=== PATIENT | female | born 1975 | race African-American/Black ===

== ENCOUNTER 2018-04-17 05:27 | Observation (INO) ==
[2018-04-17] MEDS ORDERED: methylPREDNISolone 125 MG/2 ML VIAL IVP ONE (05:36)
--- NOTE | 2018-04-17 05:59 | Emergency Department Note ---
Disposition Clinical Impression: Angioedema Disposition: Admitted As Inpatient Condition: Fair Referrals: Erin aMrie, JOSE CRUZ [Primary Care Provider] - Forms: ED Satisfaction Letter Time of Disposition: 06:20 Allergic Reaction HPI - General Chief complaint: ED Allergic Reaction Stated complaint: allergic reaction Time Seen by Provider: 04/17/18 05:32 Source: patient Mode of arrival: ambulatory Limitations: no limitations Nursing Notes Reviewed: Yes Vital Signs Reviewed: Yes - History of Present Illness HPI Narrative: Patient presents to the ED with the chief complaint of face and lip swelling. Patient just started taking lisinopril yesterday for hypertension. Took her first dose yesterday morning. States around 845 last night she started noticing some swelling in her lower lip. It has since progressed to bilateral lower lobes and upper lip as well as her cheek mainly on the right. She denies any tongue swelling at this time. She has no dyspnea or trouble swallowing. She states that she has taken Benadryl 3 times without any progression in symptoms. - Related Data Home Medications Medication Instructions Recorded Confirmed Pregabalin [Lyrica] 150 mg PO BID 07/02/17 04/17/18 Propranolol HCl 40 mg PO BID 07/02/17 04/17/18 Fexofenadine HCl [Allergy Relief] 180 mg PO DAILY 09/04/17 04/17/18 Aspirin [Adult Aspirin] 81 mg PO DAILY 04/17/18 04/17/18 Calcium Carbonate [Calcium] 500 mg PO DAILY 04/17/18 04/17/18 Cyclobenzaprine [Flexeril] 10 mg PO BID 04/17/18 04/17/18 DULoxetine [Cymbalta] 20 mg PO BID 04/17/18 04/17/18 Ferrous Sulfate [Iron] 325 mg PO DAILY 04/17/18 04/17/18 Hydrocodone/Acetaminophen 0.5 - 1 tab PO DAILY PRN 04/17/18 04/17/18 [Hydrocodone-Acetamin 5-300 mg] Melatonin 5 mg PO DAILY 04/17/18 04/17/18 Montelukast [Singulair] 10 mg PO DAILY 04/17/18 04/17/18 Multivitamin [One Daily Essential] 1 tab PO DAILY 04/17/18 04/17/18 Nasocobal 04/17/18 Allergies Allergy/AdvReac Type Severity Reaction Status Date / Time lisinopril Allergy See Verified 04/17/18 06:39 Comments NSAIDS (Non-Steroidal Allergy See Verified 04/17/18 06:39 Anti-Inflamma Comments oral steriods Allergy See Uncoded 04/17/18 06:39 Comments Review of Systems: As reviewed in the HPI. All other systems reviewed are negative or normal. Past Medical History - Past Medical History Attestation: Yes The following information was validated with the patient. Source: patient Medical history: Reports: arthritis, CVA, hypertension, migraine Surgical history: Reports: cholecystectomy Psychiatric history: Reports: anxiety, depression BEAN SNAPPER history: Reports: no BEAN SNAPPER history - Social History Smoking Status: Never smoker Smokeless Tobacco Status: No Alcohol use: Reports: rarely Drug use: Reports: none Physical Exam - General Limitations: no limitations General appearance: alert, in no apparent distress - Head Head exam: atraumatic, normocephalic, normal inspection - Eye Eye exam: Present: normal appearance, PERRL, EOMI - ENT ENT exam: other (There is diffuse perioral edema with right greater than left, no tongue or palate or uvula involvement.) - Neck Neck exam: Present: other (. Phonation is normal, no stridor) - Chest Chest inspection: Present: normal inspection, symmetric chest wall rise - Respiratory Respiratory exam: Present: normal lung sounds bilaterally - Cardiovascular Cardiovascular exam: Present: regular rate, normal rhythm, normal heart sounds Course Course Narrative: Patient presenting with lisinopril-induced angioedema. She does not have involvement of her tongue or palate yet, but is progressing since 845 last night. She has had Benadryl previously, which has not helped. We will re-dose Benadryl and defers Solu-Medrol. We will also give her 2 units of FFP to help blunt the bradykinin response. Patient will be either observed in the emergency department for 4-6 hours for will be admitted for further management. Close attention will be placed to her airway status, but she is currently stable. Vital Signs Temperature 98.1 F 04/17/18 05:29 Pulse Rate 76 04/17/18 05:29 Respiratory Rate 16 04/17/18 05:29 Blood Pressure 133/91 04/17/18 05:29 O2 Sat by Pulse Oximetry 99 04/17/18 05:29 Temperature 98.1 F 04/17/18 05:29 Pulse Rate 73 05/31/18 06:25 Respiratory Rate 16 04/17/18 06:25 Blood Pressure 131/90 04/17/18 06:25 O2 Sat by Pulse Oximetry 98 04/17/18 06:25 Oxygen Delivery Oxygen Delivery Room Air Allergic Reaction - Lab Data Result diagrams: 04/17/18 05:57 04/17/18 05:57 Lab Results 04/17/18 04/17/18 Range/Units 05:57 05:57 WBC 7.8 (4.3-11.1) K/mcL RBC 4.66 (3.82-4.97) M/mcL Hgb 13.5 (11.5-15.4) g/dL Hct 42.4 (35.3-44.9) % MCV 91.0 (83.0-100.0) fL MCH 29.0 (28.0-33.3) pg MCHC 31.8 (31.6-35.5) g/dL RDW 15.6 H (11.5-14.5) % Plt Count 321 (140-400) K/mcL MPV 10.5 (9.4-12.4) fL Immature Gran % 0.6 (0-4) % Seg Neutrophils % 47.1 % Lymphocytes % 45.2 % Monocytes % 5.0 % Eosinophils % 1.5 % Basophils % 0.6 % Neutrophils # 3.7 (1.6-8.9) K/mcL Lymphocytes # 3.5 (0.6-4.6) K/mcL Monocytes # 0.4 (0.0-1.3) K/mcL Eosinophils # 0.1 (0.0-0.6) K/mcL Basophils # 0.1 (0.0-0.2) K/mcL Sodium 137 (136-145) mEq/L Potassium 4.1 (3.5-5.1) mEq/L Chloride 105 (98-107) mEq/L Carbon Dioxide 22 L (23-29) mEq/L BUN 17 (6-20) mg/dL Creatinine 0.64 (0.60-1.20) mg/dL Est GFR ( Amer) > 60 (> 60) Est GFR (Non-Af Amer) > 60 (> 60) BUN/Creatinine Ratio 27 H (6-26) Glucose 95 (70-105) mg/dL Calculated Osmolality 285 (280-300) Calcium 9.4 (8.6-10.3) mg/dL Attestation Statement - Attestation Attestation: I examined this patient and my medical decision-making was reviewed with the Resident Physician. I agree with the documented findings, disposition and treatment plan as described except to the extent set forth below.
[2018-04-17 06:37] LABS: Basophils # 0.1 K/mcL (0.0-0.2); Basophils % 0.6 %; Eosinophils # 0.1 K/mcL (0.0-0.6); Eosinophils % 1.5 %; Hematocrit 42.4 % (35.3-44.9); Hemoglobin 13.5 g/dL (11.5-15.4); Immature Granulocytes % 0.6 % (0-4); Lymphocytes # 3.5 K/mcL (0.6-4.6); Lymphocytes % 45.2 %; Mean Corpuscular HGB Conc 31.8 g/dL (31.6-35.5); Mean Platelet Volume 10.5 fL (9.4-12.4); Monocytes # 0.4 K/mcL (0.0-1.3); Neutrophils # 3.7 K/mcL (1.6-8.9); Platelet Count 321 K/mcL (140-400); Red Blood Count 4.66 M/mcL (3.82-4.97); Red Cell Distribution Width 15.6 % (11.5-14.5); Segmented Neutrophils % 47.1 %
[2018-04-17 06:50] LABS: BUN/Creatinine Ratio 27 (6-26); Blood Urea Nitrogen 17 mg/dL (6-20); Calcium 9.4 mg/dL (8.6-10.3); Carbon Dioxide 22 mEq/L (23-29); Chloride 105 mEq/L (98-107); Glucose 95 mg/dL (70-105); Osmolality,Calculated 285 (280-300); Potassium 4.1 mEq/L (3.5-5.1); Sodium 137 mEq/L (136-145); eGFR For African Americans > 60 (> 60); eGFR For Non-African Americans > 60 (> 60)
--- NOTE | 2018-04-17 06:59 | Emergency Department Note ---
Disposition Clinical Impression: Angioedema Disposition: Admitted As Inpatient Condition: Fair Referrals: Erin Marie, MARKETING SUPPORT MANAGER [Primary Care Provider] - Forms: ED Satisfaction Letter General Adult HPI - General Chief complaint: ED Allergic Reaction Stated complaint: allergic reaction Time Seen by Provider: 04/17/18 05:32 Source: patient Mode of arrival: ambulatory Limitations: no limitations - History of Present Illness Pain Scale: 0 - Related Data Home Medications Medication Instructions Recorded Confirmed Pregabalin [Lyrica] 150 mg PO BID 07/02/17 04/17/18 Propranolol HCl 40 mg PO BID 07/02/17 04/17/18 Fexofenadine HCl [Allergy Relief] 180 mg PO DAILY 09/04/17 04/17/18 Aspirin [Adult Aspirin] 81 mg PO DAILY 04/17/18 04/17/18 Calcium Carbonate [Calcium] 500 mg PO DAILY 04/17/18 04/17/18 Cyclobenzaprine [Flexeril] 10 mg PO BID 04/17/18 04/17/18 DULoxetine [Cymbalta] 20 mg PO BID 04/17/18 04/17/18 Ferrous Sulfate [Iron] 325 mg PO DAILY 04/17/18 04/17/18 Hydrocodone/Acetaminophen 0.5 - 1 tab PO DAILY PRN 04/17/18 04/17/18 [Hydrocodone-Acetamin 5-300 mg] Melatonin 5 mg PO DAILY 04/17/18 04/17/18 Montelukast [Singulair] 10 mg PO DAILY 04/17/18 04/17/18 Multivitamin [One Daily Essential] 1 tab PO DAILY 04/17/18 04/17/18 Nasocobal 04/17/18 Allergies Allergy/AdvReac Type Severity Reaction Status Date / Time lisinopril Allergy See Verified 04/17/18 06:39 Comments NSAIDS (Non-Steroidal Allergy See Verified 04/17/18 06:39 Anti-Inflamma Comments oral steriods Allergy See Uncoded 04/17/18 06:39 Comments Past Medical History - Past Medical History Medical history: Reports: arthritis, CVA, hypertension, migraine Surgical history: Reports: cholecystectomy Psychiatric history: Reports: anxiety, depression FOREST PATROLMAN history: Reports: no FOREST PATROLMAN history - Social History Smoking Status: Never smoker Smokeless Tobacco Status: No Alcohol use: Reports: rarely Drug use: Reports: none Physical Exam - General Limitations: no limitations General appearance: alert, in no apparent distress Course Vital Signs Temperature 98.1 F 04/17/18 05:29 Pulse Rate 76 04/17/18 05:29 Respiratory Rate 16 04/17/18 05:29 Blood Pressure 133/91 04/17/18 05:29 O2 Sat by Pulse Oximetry 99 04/17/18 05:29 Temperature 98.1 F 04/17/18 05:29 Pulse Rate 73 04/17/18 06:25 Respiratory Rate 16 04/17/18 06:25 Blood Pressure 131/90 04/17/18 06:25 O2 Sat by Pulse Oximetry 98 04/17/18 06:25 Oxygen Delivery Oxygen Delivery Room Air Medical Decision Making - Lab Data Result diagrams: 04/17/18 05:57 04/17/18 05:57 Lab Results 04/17/18 04/17/18 Range/Units 05:57 05:57 WBC 7.8 (4.3-11.1) K/mcL RBC 4.66 (3.82-4.97) M/mcL Hgb 13.5 (11.5-15.4) g/dL Hct 42.4 (35.3-44.9) % MCV 91.0 (83.0-100.0) fL MCH 29.0 (28.0-33.3) pg MCHC 31.8 (31.6-35.5) g/dL RDW 15.6 H (11.5-14.5) % Plt Count 321 (140-400) K/mcL MPV 10.5 (9.4-12.4) fL Immature Gran % 0.6 (0-4) % Seg Neutrophils % 47.1 % Lymphocytes % 45.2 % Monocytes % 5.0 % Eosinophils % 1.5 % Basophils % 0.6 % Neutrophils # 3.7 (1.6-8.9) K/mcL Lymphocytes # 3.5 (0.6-4.6) K/mcL Monocytes # 0.4 (0.0-1.3) K/mcL Eosinophils # 0.1 (0.0-0.6) K/mcL Basophils # 0.1 (0.0-0.2) K/mcL Sodium 137 (136-145) mEq/L Potassium 4.1 (3.5-5.1) mEq/L Chloride 105 (98-107) mEq/L Carbon Dioxide 22 L (23-29) mEq/L BUN 17 (6-20) mg/dL Creatinine 0.64 (0.60-1.20) mg/dL Est GFR ( Amer) > 60 (> 60) Est GFR (Non-Af Amer) > 60 (> 60) BUN/Creatinine Ratio 27 H (6-26) Glucose 95 (70-105) mg/dL Calculated Osmolality 285 (280-300) Calcium 9.4 (8.6-10.3) mg/dL Attestation Statement - Attestation Attestation: I examined this patient and my medical decision-making was reviewed with the Resident Physician. I agree with the documented findings, disposition and treatment plan as described except to the extent set forth below. 42-year-old female presents ED because of facial swelling. She started lisinopril yesterday and through the night started developing facial swelling. This involves her upper and lower lips. Denies any difficult breathing or difficulty swallowing. No voice changes. No fever. No headache. Pleasant, well-appearing female in no apparent distress. Moderate symmetric facial swelling. Oropharynx is clear. No uvular edema. No tongue edema. No stridor. Lungs are clear to auscultation bilaterally. Presentation was consistent with BRIANNE inhibitor-induced angioedema She will be given 2 units of fresh frozen plasma and will be admitted for observation.
[2018-04-17] MEDS ORDERED: *HR* HYDROcodone/Acet 5/325 mg TABLET PO PRN (08:12)
[2018-04-17] MEDS ORDERED: *HR* Promethazine 25 MG/ML VIAL IVP PRN (08:12)
[2018-04-17] MEDS ORDERED: Naloxone 0.4 MG/ML INJ IVP PRN (08:12)
[2018-04-17] MEDS ORDERED: Ondansetron 4 MG/2 ML VIAL IVP PRN (08:12)
[2018-04-17] MEDS ORDERED: Acetaminophen 325 MG TABLET PO PRN (08:12)
--- NOTE | 2018-04-17 08:14 | Emergency Department Note ---
START Narrative - START START: Patient was in sign out from previous team, Dr. Monroy, Dr. Altamirano. In summary, patient is a 42-year-old female with past history of hypertension, surgery on lisinopril yesterday. She had upper and lower lip swelling. No additional doses this morning. She declined Benadryl home. She was given Benadryl, Solu- Medrol, 2 units of FFP here in the ER. She noted tongue or posterior oropharynx involvement, no wheezing, no shortness of breath or difficulty with swallowing. Patient was awaiting hospitalist return phone call at sign out. Patient has been accepted for admission by Dr. Ch at 08:14. The patient remained stable this time, no additional tongue or throat involvement on our exam.
[2018-04-17] MEDS ORDERED: Melatonin 3 MG TABLET PO SCH (09:00)
--- NOTE | 2018-04-17 09:23 | Internal Med History&Physical ---
Date of Encounter: 04/17/18 Time of Encounter: 08:15 Internal Medicine - H&P: HPI Chief complaint: Lip swelling Admitted From: Emergency Dept Plans for Post Hospital Care: Home History of present illness: Ms. Gardner is a 42 year old female with a known past medical history of migraine headaches, neuropathy, fibromyalgia, seasonal allergies and recently diagnosed hypertension and patient was started on lisinopril y/d by PCP. Now she presented to ER c/o worsening upper lip swelling since last night after she took her first dose of Lisinopril. She denied any CP / SOB. She denied of a difficult to swallowing. Past Med Surg Social Fam HX - Past Medical History Medical history: arthritis, CVA, hypertension, migraine Additional medical history: IBS. history of HTN, Hyperlipidemia, DM, GERD- patient states all resolved after gastric bypass Psychiatric history: anxiety, depression - Past Surgical History Surgical History: cholecystectomy Additional surgical history: GASTRIC BYPASS. BOWEL RESECTION. Left shoulder. Left ankle. Left breast bx. Left knee knee. sinus x2 - Social History Smoking Status: Never smoker Smokeless Tobacco Status: No Alcohol use: rarely Drug use: none - Additional Family History Additional family history: Family hsitory reviewed and non contribuitory to current problem. Internal Medicine - H&P: Meds Pregabalin [Lyrica] 150 mg PO BID 07/02/17 [History] Propranolol HCl 40 mg PO BID 07/02/17 [History] Fexofenadine HCl [Allergy Relief] 180 mg PO DAILY 09/04/17 [History] Aspirin [Adult Aspirin] 81 mg PO DAILY 04/17/18 [History] Calcium Carbonate [Calcium] 500 mg PO DAILY 04/17/18 [History] Cyclobenzaprine [Flexeril] 10 mg PO BID 04/17/18 [History] DULoxetine [Cymbalta] 20 mg PO BID 04/17/18 [History] Ferrous Sulfate [Iron] 325 mg PO DAILY 04/17/18 [History] Hydrocodone/Acetaminophen [Hydrocodone-Acetamin 5-300 mg] 0.5 - 1 tab PO DAILY PRN 04/17/18 [History] Melatonin 5 mg PO DAILY 04/17/18 [History] Montelukast [Singulair] 10 mg PO DAILY 04/17/18 [History] Multivitamin [One Daily Essential] 1 tab PO DAILY 04/17/18 [History] Nasocobal 04/17/18 [History] 3 Allergy/AdvReac Type Severity Reaction Status Date / Time lisinopril Allergy See Verified 04/17/18 06:39 Comments NSAIDS (Non-Steroidal Allergy See Verified 04/17/18 06:39 Anti-Inflamma Comments oral steriods Allergy See Uncoded 04/17/18 06:39 Comments All Systems PM: A 10-system review of systems was performed and is negative for pertinent findings except as documented above in the HPI. Review of systems: All the systems are reviewed everything is benign except the systems and symptoms I mentioned in the history of present illness - Constitutional Vitals: Temp Pulse Resp BP Pulse Ox 98.3 F 80 17 130/82 95 04/17/18 09:02 04/17/18 09:02 04/17/18 09:02 04/17/18 09:02 04/17/18 09:02 General appearance: Present: cooperative, A&O X 3, no acute distress, answers questions appropriately - Head Head exam: Present: atraumatic - ENT ENT exam: Present: mucous membranes moist Additional comments: Swollen upper lip. No pharyngeal erythema and edema noticed - Expanded ENT Exam Mouth exam: Present: tongue normal. Absent: muffled voice - Neck Neck exam general surgery: Present: supple - Respiratory Respiratory exam: Present: CTAB. Absent: accessory muscle use, rales, rhonchi, wheezes - Cardiovascular Cardiovascular exam: Present: RRR, +S1, +S2. Absent: diastolic murmur, gallop, rubs, systolic murmur - GI/Abdominal GI/Abdominal exam: Present: normal bowel sounds, soft, no peritoneal signs. Absent: distended, tenderness - Extremities Exam Extremities exam: Absent: calf tenderness, pedal edema, tenderness - Back Exam Back exam: Absent: CVA tenderness (L), CVA tenderness (R) - Neurological Exam Neurological exam: Present: alert, oriented X3 - Psychiatric Psychiatric exam: Present: normal affect, normal mood - Skin Skin exam: Absent: rash Internal Med - H&P Results - Labs CBC & Chem 7: 04/17/18 05:57 04/17/18 05:57 - Assessment and plan (1) Angioedema Current Visit: Yes Status: Acute Assessment and plan: Place the patient on Tele for observation patient does have mild angioedema due to ACEI use d/c Lisinopril and documented as allergy IV hydration IV solumedrol 40 Q6hr Pepcid 20 IV BID Benadryl PRN no signs of airway obstruction Qualifiers: Encounter type: initial encounter Qualified Code(s): T78.3XXA - Angioneurotic edema, initial encounter (2) HTN (hypertension) Current Visit: Yes Status: Acute Assessment and plan: d/c Lisinopril so far stable blood pressure in 120's Will start her on Norvasc 5mg Daily if BP gets uncontrolled Qualifiers: Hypertension type: essential hypertension Qualified Code(s): I10 - Essential (primary) hypertension (3) Migraine Current Visit: Yes Status: Chronic Assessment and plan: Resumed home medication Qualifiers: Migraine type: without aura Intractability: not intractable Qualified Code(s): G43.009 - Migraine without aura, not intractable, without status migrainosus (4) Fibromyalgia Current Visit: Yes Status: Acute Assessment and plan: Resumed home medication - Time Spent With Patient Total time spent is greater than 50% in coordination of care (as documented) at patient's floor/unit and/or counseling patient:
[2018-04-17] MEDS ORDERED: 0.9 % Sodium Chloride 250 ML ONE (11:38)
[2018-04-17] MEDS: Multivit/Ca/Min/Fe/FA 1 TAB TABLET PO SCH (11:51)
[2018-04-17] MEDS: Aspirin Enteric Coated 81 MG Tablet PO SCH (11:51)
[2018-04-17] MEDS: Pregabalin 75 MG CAPSULE PO SCH ×2 (11:51→22:06)
[2018-04-17] MEDS: Famotidine 20 MG/2 ML VIAL IVP SCH ×2 (11:54→18:17)
[2018-04-17] MEDS: MethylPREDNISolone 40 MG/ML VIAL IVP SCH (18:17)
[2018-04-17] MEDS: Melatonin 3 MG TABLET PO SCH (22:06)
[2018-04-18] MEDS: MethylPREDNISolone 40 MG/ML VIAL IVP SCH ×4 (00:32→23:44)
[2018-04-18] MEDS: Famotidine 20 MG/2 ML VIAL IVP SCH ×2 (06:29→17:01)
[2018-04-18 06:49] LABS: Chol/HDL Ratio 2.3 (0-4.9)
[2018-04-18] MEDS: Aspirin Enteric Coated 81 MG Tablet PO SCH (07:47)
[2018-04-18] MEDS: Multivit/Ca/Min/Fe/FA 1 TAB TABLET PO SCH (07:48)
[2018-04-18] MEDS: Pregabalin 75 MG CAPSULE PO SCH ×2 (07:48→21:33)
[2018-04-18] MEDS: amLODIPine 5 MG TABLET PO SCH (08:37)
--- NOTE | 2018-04-18 11:53 | Discharge Summary ---
- NOTES TO OUTPATIENT PROVIDER Notes to Outpatient Provider: Recommend follow-up with BP within one week Date of Encounter: 04/18/18 Time of Encounter: 12:37 - Discharge Diagnosis (1) Angioedema Status: Acute Assessment and Plan: Place the patient on Tele for observation patient does have mild angioedema due to ACEI use d/c Lisinopril and documented as allergy IV hydration IV solumedrol 40 Q6hr Pepcid 20 IV BID Benadryl PRN no signs of airway obstruction Qualifiers: Encounter type: initial encounter Qualified Code(s): T78.3XXA - Angioneurotic edema, initial encounter (2) HTN (hypertension) Status: Acute Assessment and Plan: d/c Lisinopril so far stable blood pressure in 120's Will start her on Norvasc 5mg Daily if BP gets uncontrolled Qualifiers: Hypertension type: essential hypertension Qualified Code(s): I10 - Essential (primary) hypertension (3) Migraine Status: Chronic Assessment and Plan: Resumed home medication Qualifiers: Migraine type: without aura Intractability: not intractable (4) Fibromyalgia Status: Acute Assessment and Plan: Resumed home medication Hospital course: Please see assessment and plan for Hospital course Discharge discussed with: patient (Seen and examined at bedside. Patient is new to me, information obtained from chart review and patient report. Says she feels significantly better. No shortness of breath, dysphagia. ) - Time Spent with Patient Total time spent providing and/or coordinating discharge services: - Discharge Medications Prescriptions: amLODIPine [Norvasc] 10 mg PO DAILY #60 tablet Home Medications: Pregabalin [Lyrica] 150 mg PO BID 07/02/17 [History] Propranolol HCl 40 mg PO BID 07/02/17 [History] Fexofenadine HCl [Allergy Relief] 180 mg PO DAILY 09/04/17 [History] Aspirin [Adult Aspirin] 81 mg PO DAILY 04/17/18 [History] Calcium Carbonate [Calcium] 500 mg PO DAILY 04/17/18 [History] Cyclobenzaprine [Flexeril] 10 mg PO BID 04/17/18 [History] DULoxetine [Cymbalta] 20 mg PO BID 04/17/18 [History] Ferrous Sulfate [Iron] 325 mg PO DAILY 04/17/18 [History] Hydrocodone/Acetaminophen [Hydrocodone-Acetamin 5-300 mg] 0.5 - 1 tab PO DAILY PRN 04/17/18 [History] Melatonin 5 mg PO DAILY 04/17/18 [History] Montelukast [Singulair] 10 mg PO DAILY 04/17/18 [History] Multivitamin [One Daily Essential] 1 tab PO DAILY 04/17/18 [History] Nasocobal 04/17/18 [History] amLODIPine [Norvasc] 10 mg PO DAILY #60 tablet 04/18/18 [Rx] Allergies/Adverse Reactions: 3 Allergy/AdvReac Type Severity Reaction Status Date / Time lisinopril Allergy See Verified 04/17/18 06:39 Comments NSAIDS (Non-Steroidal Allergy See Verified 04/17/18 06:39 Anti-Inflamma Comments oral steriods Allergy See Uncoded 04/17/18 06:39 Comments Date of admission: 04/17/18 08:15 Primary care physician: Erin Marie CNP Discharging clinician: Shell Hansen Anticipated date of discharge: 04/18/18 - Constitutional Vitals: Temp Pulse Resp BP Pulse Ox 98.2 F 80 18 115/77 96 04/18/18 10:25 04/18/18 10:25 04/18/18 10:25 04/18/18 10:25 04/18/18 10:25 General appearance: Present: cooperative, A&O X 3, no acute distress, answers questions appropriately - Patient Status Condition: Fair - Discharge Instructions Follow Up With: Erin Marie CNP [Primary Care Provider] - (Please call your primary care provider and schedule an appointment within 7-10 days. Thank You. )
--- NOTE | 2018-04-18 16:29 | Internal Med Progress Note ---
Date of Encounter: 04/18/18 Time of Encounter: 16:24 - Assessment and plan (1) Angioedema Current Visit: Yes Status: Acute Assessment and plan: secondary to BRIANNE. Took first dose of lisinopril day prior to admission with subsequent upper and lower lip and airway edema. Symptoms resolved with stopping BRIANNE and steroids. Continue steroids for now. No signs or symptoms airway compromise. He quickly oxygenating on room air. Qualifiers: Encounter type: initial encounter Qualified Code(s): T78.3XXA - Angioneurotic edema, initial encounter (2) HTN (hypertension) Current Visit: Yes Status: Acute Assessment and plan: per hx. BP uncontrolled. Amlodipine added. Monitor BP and titrate PRN Qualifiers: Hypertension type: essential hypertension Qualified Code(s): I10 - Essential (primary) hypertension (3) Migraine Current Visit: Yes Status: Chronic Assessment and plan: Resumed home medication Qualifiers: Migraine type: without aura Intractability: not intractable Qualified Code(s): G43.001 - Migraine without aura, not intractable, with status migrainosus (4) Fibromyalgia Current Visit: Yes Status: Acute Assessment and plan: Resumed home medication (5) Chest pain Current Visit: Yes Status: Acute Assessment and plan: reported chest pain on 04/18 exam that radiated to her throat/neck. Different from presenting symptoms. No known CAD. Neck EKG, serial troponins. States she had an echocardiogram at [facility] last week, records requested. Cont to monitor on telemetry. Qualifiers: Chest pain type: unspecified Qualified Code(s): R07.9 - Chest pain, unspecified (6) DVT prophylaxis Current Visit: Yes Status: Acute Assessment and plan: ambulation - Time Spent With Patient Total time spent is greater than 50% in coordination of care (as documented) at patient's floor/unit and/or counseling patient: - Subjective Interval history: Seen and examined at bedside. Patient is new to me, information obtained from chart review and patient report. Patient says she feels significantly better regarding swelling and difficult breathing. She does report episode of chest pressure that radiated to her neck earlier this morning when she was drinking coffee. Denies all my exam. No shortness of breath. She is agreeable to stay to cycle troponins and get echocardiogram [facility]. - Constitutional Vitals: Temp Pulse Resp BP Pulse Ox 98.4 F 86 18 117/72 97 04/18/18 15:29 04/18/18 15:29 04/18/18 15:29 04/18/18 15:29 04/18/18 15:29 General appearance: Present: cooperative, A&O X 3, no acute distress, answers questions appropriately - Head Head exam: Present: atraumatic, normocephalic - Eye Eye exam: Present: PERRL, conjuntiva pink, sclera anicteric Pupils: Present: PERRL - Neck Neck exam general surgery: Present: supple, trachea midline. Absent: lymphadenopathy - Respiratory Respiratory exam: Present: CTAB. Absent: accessory muscle use, rales, rhonchi, wheezes - Cardiovascular Cardiovascular exam: Present: RRR, +S1, +S2. Absent: diastolic murmur, gallop, rubs, systolic murmur - GI/Abdominal GI/Abdominal exam: Present: normal bowel sounds, soft, no peritoneal signs. Absent: distended, tenderness - Extremities Exam Extremities exam: Present: warm, radial pulses palpable and symmetrical. Absent : calf tenderness, cyanotic, pedal edema - Neurological Exam Neurological exam: Present: CN II-XII intact, oriented X3, no focal deficits. Absent: pronater drift, facial droop, speech deficit - Skin Skin exam: Present: dry, intact Internal Medicine: Result - Labs CBC & Chem 7: 04/17/18 05:57 04/17/18 05:57 Labs: Cardiac Enzymes 04/18/18 Range/Units 14:16 Troponin I < 0.03 (< 0.04) ng/mL Consult Discharge Plan - Plan Referrals: Erin Marie, CODING COMPLIANCE MANAGER [Primary Care Provider] - (Please call your primary care provider and schedule an appointment within 7-10 days. Thank You. ) Prescriptions: amLODIPine [Norvasc] 10 mg PO DAILY #60 tablet
[2018-04-18] MEDS: Melatonin 3 MG TABLET PO SCH (21:33)
[2018-04-19] MEDS: Famotidine 20 MG/2 ML VIAL IVP SCH ×2 (06:33→17:14)
[2018-04-19] MEDS: amLODIPine 5 MG TABLET PO SCH (08:12)
[2018-04-19] MEDS: MethylPREDNISolone 40 MG/ML VIAL IVP SCH ×2 (08:12→19:22)
[2018-04-19] MEDS: Pregabalin 75 MG CAPSULE PO SCH ×2 (08:13→21:27)
[2018-04-19] MEDS: Multivit/Ca/Min/Fe/FA 1 TAB TABLET PO SCH (08:13)
[2018-04-19] MEDS: Aspirin Enteric Coated 81 MG Tablet PO SCH (08:13)
--- NOTE | 2018-04-19 16:08 | Internal Med Progress Note ---
Date of Encounter: 04/19/18 Time of Encounter: 16:08 - Assessment and plan (1) Chest pain Current Visit: Yes Status: Acute Assessment and plan: reported chest pain on 04/18 exam that radiated to her throat/neck. Different from presenting symptoms. No known CAD. EKG without acute ST changes. Serial troponins negative. 04/09/18 [facility] TTE with EF 65%, no significant valvular disease. Reports persistent chest tightness on 04/19 exam. Cardiac risk factors include hypertension and family history. Plan for stress on Thursday 04/19. Of note patient will be a 2 day stress therefore will not be completed until Friday 04/20. Continue to monitor on telemetry. Qualifiers: Chest pain type: unspecified Qualified Code(s): R07.9 - Chest pain, unspecified (2) Angioedema Current Visit: Yes Status: Acute Assessment and plan: secondary to BRIANNE. Took first dose of lisinopril day prior to admission with subsequent upper and lower lip and airway edema. Symptoms resolved with stopping BRIANNE and steroids. Continue steroids for now. No signs or symptoms airway compromise. Adequately oxygenating on room air. Cont steroids (stop after dose on Saturday 04/21). Qualifiers: Encounter type: initial encounter Qualified Code(s): T78.3XXA - Angioneurotic edema, initial encounter (3) HTN (hypertension) Current Visit: Yes Status: Acute Assessment and plan: per hx. BP uncontrolled. Amlodipine added. Monitor BP and titrate PRN. Nik elevation of BP on 04/19. PRN hydralazine added Qualifiers: Hypertension type: essential hypertension Qualified Code(s): I10 - Essential (primary) hypertension (4) Migraine Current Visit: Yes Status: Chronic Assessment and plan: Resumed home medication Qualifiers: Migraine type: without aura Intractability: not intractable Qualified Code(s): G43.001 - Migraine without aura, not intractable, with status migrainosus (5) Fibromyalgia Current Visit: Yes Status: Acute Assessment and plan: Resumed home medication (6) DVT prophylaxis Current Visit: Yes Status: Acute - Time Spent With Patient Total time spent is greater than 50% in coordination of care (as documented) at patient's floor/unit and/or counseling patient: - Subjective Interval history: Seen and examined at bedside. Overall says she feels better. Swelling of the lips is completely gone. No dysfunction shortness of breath. She does report persistent chest tightness that radiates to left shoulder. She is concerned due to family history of CAD. She is agreeable to stay for stress test on Saturday. She is aware that she is a 2 day stress was probably completed until Saturday. - Constitutional Vitals: Temp Pulse Resp BP Pulse Ox 98.2 F 89 16 146/84 97 04/19/18 12:00 04/19/18 13:18 04/19/18 12:00 04/19/18 13:18 04/19/18 12:00 General appearance: Present: cooperative, A&O X 3, no acute distress, answers questions appropriately - Head Head exam: Present: atraumatic, normocephalic - Eye Eye exam: Present: PERRL, conjuntiva pink, sclera anicteric Pupils: Present: PERRL - Neck Neck exam general surgery: Present: supple, trachea midline. Absent: lymphadenopathy - Respiratory Respiratory exam: Present: CTAB. Absent: accessory muscle use, rales, rhonchi, wheezes - Cardiovascular Cardiovascular exam: Present: RRR, +S1, +S2. Absent: diastolic murmur, gallop, rubs, systolic murmur - GI/Abdominal GI/Abdominal exam: Present: normal bowel sounds, soft, no peritoneal signs. Absent: distended, tenderness - Extremities Exam Extremities exam: Present: warm, radial pulses palpable and symmetrical. Absent : calf tenderness, cyanotic, pedal edema - Neurological Exam Neurological exam: Present: CN II-XII intact, oriented X3, no focal deficits. Absent: pronater drift, facial droop, speech deficit - Skin Skin exam: Present: dry, intact Internal Medicine: Result - Labs CBC & Chem 7: 04/17/18 05:57 04/17/18 05:57 Labs: Cardiac Enzymes 04/18/18 04/19/18 Range/Units 20:06 01:05 Troponin I < 0.03 < 0.03 (< 0.04) ng/mL Consult Discharge Plan - Plan Referrals: Erin Marie, RAILWAYS ASSISTANT [Primary Care Provider] - (Please call your primary care provider and schedule an appointment within 7-10 days. Thank You. ) Prescriptions: amLODIPine [Norvasc] 10 mg PO DAILY #60 tablet
[2018-04-19] MEDS: hydrALAZINE 10 MG TABLET PO SCH ×2 (17:14→21:27)
[2018-04-19] MEDS: Melatonin 3 MG TABLET PO SCH (21:27)
[2018-04-20] MEDS: Famotidine 20 MG/2 ML VIAL IVP SCH ×2 (05:26→18:36)
[2018-04-20] MEDS: predniSONE 20 MG TABLET PO SCH (10:14)
[2018-04-20] MEDS: Loratadine 10 MG TABLET PO SCH (10:14)
[2018-04-20] MEDS: Aspirin Enteric Coated 81 MG Tablet PO SCH (10:14)
[2018-04-20] MEDS: Pregabalin 75 MG CAPSULE PO SCH ×2 (10:15→21:08)
[2018-04-20] MEDS: amLODIPine 5 MG TABLET PO SCH (10:15)
[2018-04-20] MEDS: Multivit/Ca/Min/Fe/FA 1 TAB TABLET PO SCH (10:16)
[2018-04-20] MEDS: hydrALAZINE 10 MG TABLET PO SCH ×3 (10:16→21:08)
--- NOTE | 2018-04-20 16:02 | Internal Med Progress Note ---
Date of Encounter: 04/20/18 Time of Encounter: 16:02 - Assessment and plan (1) Chest pain Current Visit: Yes Status: Acute Assessment and plan: reported chest pain on 04/18 exam that radiated to her throat/neck. Different from presenting symptoms. No known CAD. EKG without acute ST changes. Serial troponins negative. 04/09/18 [facility] TTE with EF 65%, no significant valvular disease. Reports persistent chest tightness on 04/19 exam. Cardiac risk factors include hypertension and family history. Plan for stress on Thursday 04/19. Of note patient will be a 2 day stress therefore will not be completed until Friday 04/20. Continue to monitor on telemetry. Qualifiers: Chest pain type: unspecified Qualified Code(s): R07.9 - Chest pain, unspecified (2) Angioedema Current Visit: Yes Status: Acute Assessment and plan: secondary to BRIANNE. Took first dose of lisinopril day prior to admission with subsequent upper and lower lip and airway edema. Symptoms resolved with stopping BRIANNE and steroids. Continue steroids for now. No signs or symptoms airway compromise. Adequately oxygenating on room air. Cont steroids (stop after dose on Saturday 04/21). Qualifiers: Encounter type: initial encounter Qualified Code(s): T78.3XXA - Angioneurotic edema, initial encounter (3) HTN (hypertension) Current Visit: Yes Status: Acute Assessment and plan: per hx. BP uncontrolled. Home BRIANNE stopped with angioedema. BP controlled with resuming home BB and adding amlodipine and hydralazine. Monitor BP and titrate PRN. Nik elevation of BP on 04/19. PRN hydralazine added Qualifiers: Hypertension type: essential hypertension Qualified Code(s): I10 - Essential (primary) hypertension (4) Migraine Current Visit: Yes Status: Chronic Assessment and plan: Resumed home medication Qualifiers: Migraine type: without aura Intractability: not intractable Qualified Code(s): G43.001 - Migraine without aura, not intractable, with status migrainosus (5) Fibromyalgia Current Visit: Yes Status: Acute Assessment and plan: Resumed home medication (6) DVT prophylaxis Current Visit: Yes Status: Acute Assessment and plan: ambulation - Time Spent With Patient Total time spent is greater than 50% in coordination of care (as documented) at patient's floor/unit and/or counseling patient: - Subjective Interval history: Seen and examined at bedside. Resting in bed, appears comfortable. She has no complaints at time of exam. Says she still having intermittent chest pain. No active chest pain on my exam. She is aware of need to be nothing by mouth midnight for stress test in the morning. - Constitutional Vitals: Temp Pulse Resp BP Pulse Ox 98.4 F 78 16 123/79 97 04/20/18 12:32 04/20/18 12:32 04/20/18 12:32 04/20/18 12:32 04/20/18 12:32 General appearance: Present: cooperative, A&O X 3, morbidly obese, no acute distress, answers questions appropriately - Head Head exam: Present: atraumatic, normocephalic - Eye Eye exam: Present: PERRL, conjuntiva pink, sclera anicteric Pupils: Present: PERRL - Neck Neck exam general surgery: Present: supple, trachea midline. Absent: lymphadenopathy - Respiratory Respiratory exam: Present: CTAB. Absent: accessory muscle use, rales, rhonchi, wheezes - Cardiovascular Cardiovascular exam: Present: RRR, +S1, +S2. Absent: diastolic murmur, gallop, rubs, systolic murmur - GI/Abdominal GI/Abdominal exam: Present: normal bowel sounds, soft, no peritoneal signs. Absent: distended, tenderness - Extremities Exam Extremities exam: Present: warm, radial pulses palpable and symmetrical. Absent : calf tenderness, cyanotic, pedal edema - Neurological Exam Neurological exam: Present: CN II-XII intact, oriented X3, no focal deficits. Absent: pronater drift, facial droop, speech deficit - Skin Skin exam: Present: dry, intact Internal Medicine: Result - Labs CBC & Chem 7: 04/17/18 05:57 04/17/18 05:57 Consult Discharge Plan - Plan Referrals: Erin Marie, STRUCTURAL STEEL TRADES WORKER [Primary Care Provider] - (Please call your primary care provider and schedule an appointment within 7-10 days. Thank You. ) Prescriptions: amLODIPine [Norvasc] 10 mg PO DAILY #60 tablet
[2018-04-20] MEDS: Melatonin 3 MG TABLET PO SCH (21:08)
--- NOTE | 2018-04-20 21:47 | Electrocardiograph Report ---
[place] [id number] Test Date: 2018-04-18 Pat Name: Maya Gardner Department: 113 Room: 3B54 Gender: F Belt Dresser: : 1975 Requested By: Shell Hansen Order Number: [id number] Reading MD: Joseph Collier Measurements Intervals [place] Rate: 72 P: 34 NH: 182 QRS: 18 QRSD: 104 T: 1 QT: 379 QTc: 403 Interpretive Statements SINUS RHYTHM POSSIBLE INFERIOR MYOCARDIAL INFARCTION, PROBABLY OLD Electronically Signed On 04-20-2018 21:45:33 EDT by Joseph Collier
[2018-04-21] MEDS: Famotidine 20 MG/2 ML VIAL IVP SCH ×2 (05:35→16:45)
[2018-04-21] MEDS ORDERED: Regadenoson 0.4 MG/5 ML SYRINGE IVP ONE (05:56)
[2018-04-21] MEDS: hydrALAZINE 10 MG TABLET PO SCH ×3 (12:15→20:38)
[2018-04-21] MEDS: amLODIPine 5 MG TABLET PO SCH (12:15)
[2018-04-21] MEDS: Loratadine 10 MG TABLET PO SCH (12:15)
[2018-04-21] MEDS: Aspirin Enteric Coated 81 MG Tablet PO SCH (12:15)
[2018-04-21] MEDS: Multivit/Ca/Min/Fe/FA 1 TAB TABLET PO SCH (12:15)
[2018-04-21] MEDS: Pregabalin 75 MG CAPSULE PO SCH ×2 (12:15→20:38)
[2018-04-21] MEDS: predniSONE 20 MG TABLET PO SCH (14:21)
--- NOTE | 2018-04-21 17:03 | Internal Med Progress Note ---
Date of Encounter: 04/21/18 Time of Encounter: 17:02 - Assessment and plan (1) Chest pain Current Visit: Yes Status: Acute Assessment and plan: reported chest pain on 04/18 exam that radiated to her throat/neck. Different from presenting symptoms. No known CAD. EKG without acute ST changes. Serial troponins negative. 04/09/18 [facility] TTE with EF 65%, no significant valvular disease. Reports persistent chest tightness on 04/19 exam. Cardiac risk factors include hypertension and family history. First part of stress test completed on 04/21. Of note patient will be a 2 day stress therefore will not be completed until Sunday 04/22. Continue to monitor on telemetry. Qualifiers: Chest pain type: unspecified Qualified Code(s): R07.9 - Chest pain, unspecified (2) Angioedema Current Visit: Yes Status: Acute Assessment and plan: secondary to BRIANNE. Took first dose of lisinopril day prior to admission with subsequent upper and lower lip and airway edema. Symptoms resolved with stopping BRIANNE and steroids. Continue steroids for now. No signs or symptoms airway compromise. Adequately oxygenating on room air. Cont steroids (stop after dose on Saturday 04/21). Qualifiers: Encounter type: initial encounter Qualified Code(s): T78.3XXA - Angioneurotic edema, initial encounter (3) HTN (hypertension) Current Visit: Yes Status: Acute Assessment and plan: per hx. BP uncontrolled. Home BRIANNE stopped with angioedema. BP controlled with resuming home BB and adding amlodipine and hydralazine. Monitor BP and titrate PRN. BP controlled on review Qualifiers: Hypertension type: essential hypertension Qualified Code(s): I10 - Essential (primary) hypertension (4) Migraine Current Visit: Yes Status: Chronic Assessment and plan: Resumed home medication Qualifiers: Migraine type: without aura Intractability: not intractable Qualified Code(s): G43.001 - Migraine without aura, not intractable, with status migrainosus (5) Fibromyalgia Current Visit: Yes Status: Acute Assessment and plan: Resumed home medication (6) DVT prophylaxis Current Visit: Yes Status: Acute Assessment and plan: ambulation - Time Spent With Patient Total time spent is greater than 50% in coordination of care (as documented) at patient's floor/unit and/or counseling patient: - Subjective Interval history: Seen and examined at bedside. Resting in bed, appears comfortable. Just returned from first part of stress test. No active chest pain or shortness of breath on my exam but she does report intermittent chest pain. BP review with her to BP is well-controlled. - Constitutional Vitals: Temp Pulse Resp BP Pulse Ox 98.8 F 91 14 124/81 95 04/21/18 07:46 04/21/18 15:01 04/21/18 15:01 04/21/18 15:01 04/21/18 15:01 General appearance: Present: cooperative, A&O X 3, morbidly obese, no acute distress, answers questions appropriately - Head Head exam: Present: atraumatic, normocephalic - Eye Eye exam: Present: PERRL, conjuntiva pink, sclera anicteric Pupils: Present: PERRL - Neck Neck exam general surgery: Present: supple, trachea midline. Absent: lymphadenopathy - Respiratory Respiratory exam: Present: CTAB. Absent: accessory muscle use, rales, rhonchi, wheezes - Cardiovascular Cardiovascular exam: Present: RRR, +S1, +S2. Absent: diastolic murmur, gallop, rubs, systolic murmur - GI/Abdominal GI/Abdominal exam: Present: normal bowel sounds, soft, no peritoneal signs. Absent: distended, tenderness - Extremities Exam Extremities exam: Present: warm, radial pulses palpable and symmetrical. Absent : calf tenderness, cyanotic, pedal edema - Neurological Exam Neurological exam: Present: CN II-XII intact, oriented X3, no focal deficits. Absent: pronater drift, facial droop, speech deficit - Skin Skin exam: Present: dry, intact Internal Medicine: Result - Labs CBC & Chem 7: 04/17/18 05:57 04/17/18 05:57 Consult Discharge Plan - Plan Referrals: Erin Marie, CUSTOMER RESPONSE REPRESENTATIVE [Primary Care Provider] - (Please call your primary care provider and schedule an appointment within 5-7 days. Thank You. ) Prescriptions: amLODIPine [Norvasc] 10 mg PO DAILY #60 tablet
[2018-04-21] MEDS: Melatonin 3 MG TABLET PO SCH (20:39)
[2018-04-22] MEDS: Famotidine 20 MG/2 ML VIAL IVP SCH ×2 (05:45→18:39)
[2018-04-22] MEDS: Multivit/Ca/Min/Fe/FA 1 TAB TABLET PO SCH (08:13)
[2018-04-22] MEDS: Loratadine 10 MG TABLET PO SCH (08:13)
[2018-04-22] MEDS: Aspirin Enteric Coated 81 MG Tablet PO SCH (08:13)
[2018-04-22] MEDS: Pregabalin 75 MG CAPSULE PO SCH ×2 (08:13→22:02)
[2018-04-22] MEDS: hydrALAZINE 10 MG TABLET PO SCH ×3 (08:13→22:02)
[2018-04-22] MEDS: amLODIPine 5 MG TABLET PO SCH (08:13)
--- NOTE | 2018-04-22 12:43 | Cardiology Consult Note ---
Date of Encounter: 04/22/18 Time of Encounter: 12:37 Assessment and Plan (1) Equivocal stress test Current Visit: Yes Status: Acute C/o chest pain after allergic reaction. Chest pain with typical and atypical features. Troponin negative x3, EKG shows NSR and old inferior infarct, unchanged from previous EKG. 2 day pharmacologic stress test was completed and found to be equivocal. Reviewed finding with patient. TTE shows preserved EF. LVEF 65-70%. Asymmetric basal septal hypertrophy with increased resting LVOT gradient, PG 17 mmHg. There is also a dynamic mid- cavity gradient, 18 mmHg. Mild left ventricular diastolic dysfunction. Normal right ventricular structure and function. Mild mitral regurgitation. No pulmonary hypertension. She continues to have intermittent chest pain that increases with ambulation. Cardiac risk factors include family history (mother with PCI in her 40's), HTN, HLD. LHC verses medical management and monitoring discussed. LHC R/B/A discussed and she agrees to proceed. NPO after midnight. (2) Chest pain Current Visit: Yes Status: Acute See plan above. Qualifiers: Chest pain type: unspecified Qualified Code(s): R07.9 - Chest pain, unspecified Discussion w patient/family: The assessment and plan as outlined above was discussed with the patient and/or family members who expressed understanding and agreement. All questions were answered. Thank you for involving us in the care of your patient. Please call with any questions. History of Present Illness Consult date: 04/22/18 Requesting physician: Shell Hansen Consult reason: abnormal stress test Chief complaint: Chest pain History of present illness: Ms. Gardner is a 42 year old female with past medical history of fibromyalgia, HLD, and recently diagnosed with HTN. She presented after developing angioedema from lisinopril that was started by her PCP. During her hospital stay she developed a substernal to left sided chest burning that increases when she ambulates. Also c/o tingling in her hands. Denies SOB or palpitations. Denies nausea. Denies chest pain prior to admission. Denies history of CAD. She underwent LHC more than 10 years ago that normal. Cardiology consulted for abnormal stress test completed this admission. Past Med Surg Social Fam HX - Past Medical History Medical history: arthritis, hyperlipidemia, hypertension, migraine Additional medical history: IBS. history of HTN, Hyperlipidemia, DM, GERD- patient states all resolved after gastric bypass Psychiatric history: anxiety, depression - Past Surgical History Surgical History: cholecystectomy Additional surgical history: GASTRIC BYPASS. BOWEL RESECTION. Left shoulder. Left ankle. Left breast bx. Left knee knee. sinus x2 - Social History Smoking Status: Never smoker Smokeless Tobacco Status: No Alcohol use: rarely Drug use: none - Family History Sister Age: 43 Family Member Ethnicity: Unknown Living Status: Still Living Hx Family Cancer: Yes Hx Family Endocrine Disorder: Yes Mother Name: Michelle Age: 63 Living Status: Still Living Hx Family Cardiac Disorders: Yes Father Adopted: [place]: Ed Age: 64 Living Status: Still Living Hx Family Endocrine Disorder: Yes Medications and Allergies Pregabalin [Lyrica] 150 mg PO BID 07/02/17 [History] Propranolol HCl 40 mg PO BID 07/02/17 [History] Fexofenadine HCl [Allergy Relief] 180 mg PO DAILY 09/04/17 [History] Aspirin [Adult Aspirin] 81 mg PO DAILY 04/17/18 [History] Calcium Carbonate [Calcium] 500 mg PO DAILY 04/17/18 [History] Cyclobenzaprine [Flexeril] 10 mg PO BID 04/17/18 [History] DULoxetine [Cymbalta] 20 mg PO BID 04/17/18 [History] Ferrous Sulfate [Iron] 325 mg PO DAILY 04/17/18 [History] Hydrocodone/Acetaminophen [Hydrocodone-Acetamin 5-300 mg] 0.5 - 1 tab PO DAILY PRN 04/17/18 [History] Melatonin 5 mg PO DAILY 04/17/18 [History] Montelukast [Singulair] 10 mg PO DAILY 04/17/18 [History] Multivitamin [One Daily Essential] 1 tab PO DAILY 04/17/18 [History] Nasocobal 04/17/18 [History] amLODIPine [Norvasc] 10 mg PO DAILY #60 tablet 04/18/18 [Rx] 3 Allergy/AdvReac Type Severity Reaction Status Date / Time lisinopril Allergy See Verified 04/17/18 06:39 Comments NSAIDS (Non-Steroidal Allergy See Verified 04/17/18 06:39 Anti-Inflamma Comments oral steriods Allergy See Uncoded 04/17/18 06:39 Comments All Systems Review: The remainder of the systems were reviewed and are negative Physical Examination Vital Signs, Last 4 Hours Temp Pulse Resp BP Pulse Ox 04/22/18 11:08 98.2 F 85 15 151/89 96 General: Conversant, No Apparent Distress HEENT: Atraumatic, Normocephaly, Mucus Membranes Moist Neck: No JVD, Normal carotid pulses Cardiac: Reg Rate and Rhythm, Normal S1 and S2, No Murmur Lungs: Normal Breath Sounds, No Wheeze, Rales, Rhonchi Neuro: Alert and responsive, No focal deficits noted Abdomen: Soft, Non-Tender Skin: No rashes noted on visualized skin Musculoskeletal: Other (reproducible chest wall pain) Extremities: No Clubbing, No Cyanosis, No Edema, Normal Pulses Results 04/17/18 05:57 04/17/18 05:57 - Imaging and Cardiology Stress Test: report reviewed Echo: report reviewed - EKG Interpretation EKG results cardiology: personally reviewed Consult Discharge Plan - Plan Referrals: Erin Marie, R PROGRAMMER [Primary Care Provider] - (Please call your primary care provider and schedule an appointment within 5-7 days. Thank You. ) Prescriptions: amLODIPine [Norvasc] 10 mg PO DAILY #60 tablet
--- NOTE | 2018-04-22 16:10 | Internal Med Progress Note ---
Date of Encounter: 04/22/18 Time of Encounter: 16:08 - Assessment and plan (1) Chest pain Current Visit: Yes Status: Acute Assessment and plan: reported chest pain on 04/18 exam that radiated to her throat/neck. Different from presenting symptoms. No known CAD. EKG without acute ST changes. Serial troponins negative. 04/09/18 [facility] TTE with EF 65%, no significant valvular disease. Reports persistent chest tightness on 04/19 exam. Cardiac risk factors include hypertension and family history. Nuclear stress test was small size, mild intensity perfusion defect suspicious for artifact however ischemia could not be excluded. Still having intermittent chest tightness. [facility] planned for 04/23/18. Cardiology following. Continue to monitor on telemetry. Qualifiers: Chest pain type: unspecified Qualified Code(s): R07.9 - Chest pain, unspecified (2) Angioedema Current Visit: Yes Status: Acute Assessment and plan: secondary to BRIANNE. Took first dose of lisinopril day prior to admission with subsequent upper and lower lip and airway edema. Symptoms resolved with stopping BRIANNE and steroids. Continue steroids for now. No signs or symptoms airway compromise. Adequately oxygenating on room air. Cont steroids (stop after dose on Saturday 04/21). Qualifiers: Encounter type: initial encounter Qualified Code(s): T78.3XXA - Angioneurotic edema, initial encounter (3) HTN (hypertension) Current Visit: Yes Status: Acute Assessment and plan: per hx. BP uncontrolled. Home BRIANNE stopped with angioedema. BP controlled with resuming home BB and adding amlodipine and hydralazine. Monitor BP and titrate PRN. BP controlled on 04/22 review Qualifiers: Hypertension type: essential hypertension Qualified Code(s): I10 - Essential (primary) hypertension (4) Migraine Current Visit: Yes Status: Chronic Assessment and plan: Resumed home medication Qualifiers: Migraine type: without aura Intractability: not intractable Qualified Code(s): G43.001 - Migraine without aura, not intractable, with status migrainosus (5) Fibromyalgia Current Visit: Yes Status: Acute Assessment and plan: Resumed home medication (6) DVT prophylaxis Current Visit: Yes Status: Acute Assessment and plan: ambulation - Time Spent With Patient Total time spent is greater than 50% in coordination of care (as documented) at patient's floor/unit and/or counseling patient: - Subjective Interval history: Seen and examined at bedside. She just returned from second part of stress test. Says she had uneventful night. She is concerned about her blood pressure. Still having intermittent chest tightness, no shortness of breath. - Constitutional Vitals: Temp Pulse Resp BP Pulse Ox 99.0 F 98 16 139/95 96 04/22/18 15:23 04/22/18 15:23 04/22/18 15:23 04/22/18 15:23 04/22/18 15:23 General appearance: Present: cooperative, A&O X 3, morbidly obese, no acute distress, answers questions appropriately - Head Head exam: Present: atraumatic, normocephalic - Eye Eye exam: Present: PERRL, conjuntiva pink, sclera anicteric Pupils: Present: PERRL - Neck Neck exam general surgery: Present: supple, trachea midline. Absent: lymphadenopathy - Respiratory Respiratory exam: Present: CTAB. Absent: accessory muscle use, rales, rhonchi, wheezes - Cardiovascular Cardiovascular exam: Present: RRR, +S1, +S2. Absent: diastolic murmur, gallop, rubs, systolic murmur - GI/Abdominal GI/Abdominal exam: Present: normal bowel sounds, soft, no peritoneal signs. Absent: distended, tenderness - Extremities Exam Extremities exam: Present: warm, radial pulses palpable and symmetrical. Absent : calf tenderness, cyanotic, pedal edema - Neurological Exam Neurological exam: Present: CN II-XII intact, oriented X3, no focal deficits. Absent: pronater drift, facial droop, speech deficit - Skin Skin exam: Present: dry, intact Internal Medicine: Result - Labs CBC & Chem 7: 04/17/18 05:57 04/17/18 05:57 - Impressions Impressions Echocardiogram 04/21/18 13:53 Impressions: LVEF 65-70%. Asymmetric basal septal hypertrophy with increased resting LVOT gradient, PG 17 mmHg. There is also a dynamic mid-cavity gradient, 18 mmHg. Mild left ventricular diastolic dysfunction. Normal right ventricular structure and function. Mild mitral regurgitation. No pulmonary hypertension. Recommend clinical correlation. Left Ventricular Wall Motion: Rest Echo Findings All wall segments showed normal motion. Findings: Study Quality * Technically adequate exam. ECG Findings * Normal sinus rhythm. Left Ventricle * LVEF 65-70%. * Asymmetric basal septal hypertrophy with increased resting LVOT gradient, PG 17 mmHg. There is a dynamic LVOT mid-cavity gradient, 18 mmHg. * Mild left ventricular diastolic dysfunction. Right Ventricle * Normal right ventricular structure and function. Left Atrium * Mildly dilated left atrium. Right Atrium * Normal right atrial size. Mitral Valve * Normal mitral valve structure. * No mitral stenosis. * Mild mitral regurgitation. Aortic Valve * No aortic regurgitation. * Trileaflet aortic valve. * No aortic stenosis. Tricuspid Valve * Normal tricuspid valve structure. * Trace tricuspid regurgitation. * Estimated RA pressure is 3 mmHg. * Estimated RVSP is 15 mmHg. * No pulmonary hypertension. Pulmonic Valve * Pulmonic valve is not well visualized. * No pulmonic stenosis. * Trace pulmonic regurgitation. Pulmonary Artery * Pulmonary artery not well visualized. Aorta * Normally sized aortic root. Pericardium * There is no pericardial effusion present. Interatrial Septum * No evidence of PFO by color Doppler. IVC * Normal IVC dimensions and inspiratory collapse. Consult Discharge Plan - Plan Referrals: Erin Marie, BUSINESS DEAN [Primary Care Provider] - (Please call your primary care provider and schedule an appointment within 5-7 days. Thank You. ) Prescriptions: amLODIPine [Norvasc] 10 mg PO DAILY #60 tablet
--- NOTE | 2018-04-22 17:13 | Pre-Sedation Evaluation ---
Pre-sedation evaluation - Pre-sedation checklist Date of procedure: 04/22/18 Procedure: [facility] Recent Vitals: Last Vital Signs Temp 99.0 F 04/22/18 15:23 Pulse 98 04/22/18 15:23 Resp 16 04/22/18 15:23 BP 139/95 04/22/18 15:23 Pulse Ox 96 04/22/18 15:23 H&P (including ROS) documented in medical record: Yes Previous reaction to sedatives/anesthetics: No Dietary Status: NPO after Midnight Airway Assessment: Patient can open mouth completely, TMJ function normal ASA Classification *see protocol: CLASS II-Mild systemic disease Plan of Care: Pt appropriate candidate for procedure/moderate/conscious sedation , Risks/benefits of procedure/sedation discussed w/ patient/family
[2018-04-22] MEDS: Melatonin 3 MG TABLET PO SCH (22:03)
[2018-04-23 04:07] LABS: Hemoglobin 14.2 g/dL (11.5-15.4); Mean Corpuscular HGB Conc 32.3 g/dL (31.6-35.5); Mean Platelet Volume 9.9 fL (9.4-12.4); Platelet Count 355 K/mcL (140-400); Red Blood Count 4.89 M/mcL (3.82-4.97); Red Cell Distribution Width 15.1 % (11.5-14.5)
[2018-04-23 04:19] LABS: BUN/Creatinine Ratio 18 (6-26); Blood Urea Nitrogen 12 mg/dL (6-20); Calcium 8.5 mg/dL (8.6-10.3); Carbon Dioxide 24 mEq/L (23-29); Chloride 107 mEq/L (98-107); Glucose 102 mg/dL (70-105); Osmolality,Calculated 292 (280-300); Sodium 141 mEq/L (136-145); eGFR For African Americans > 60 (> 60); eGFR For Non-African Americans > 60 (> 60)
[2018-04-23] MEDS: Famotidine 20 MG/2 ML VIAL IVP SCH (05:36)
[2018-04-23] MEDS: hydrALAZINE 10 MG TABLET PO SCH ×2 (11:16→16:19)
[2018-04-23] MEDS: amLODIPine 5 MG TABLET PO SCH (11:16)
[2018-04-23] MEDS: Multivit/Ca/Min/Fe/FA 1 TAB TABLET PO SCH (11:16)
[2018-04-23] MEDS: Pregabalin 75 MG CAPSULE PO SCH (11:16)
[2018-04-23] MEDS: Loratadine 10 MG TABLET PO SCH (11:17)
[2018-04-23] MEDS: Aspirin Enteric Coated 81 MG Tablet PO SCH (11:21)
[2018-04-23] MEDS ORDERED: Verapamil 5 MG/2 ML VIAL ONE (13:54)
[2018-04-23] MEDS ORDERED: 0.9 % Sodium Chloride 1,000 ML ONE (13:55)
[2018-04-23] MEDS ORDERED: Heparin 1,000 UNITS/500 mL 500 ML ONE (13:55)
[2018-04-23] MEDS ORDERED: Nitroglycerin 1,000 MCG/10 ML VIAL IV ONE (13:55)
[2018-04-23] MEDS ORDERED: *HR* Heparin 10,000 UNIT/10 ML VIAL ONE (13:55)
[2018-04-23] MEDS ORDERED: ISOVUE-370 200 ML INFUS..BTL IV ONE (13:55)
[2018-04-23] MEDS ORDERED: *HR* Midazolam HCl 2 MG/2 ML VIAL ONE ×2 (15:07→15:25)
[2018-04-23] MEDS ORDERED: *HR* FentaNYL (PF) 100 MCG/2 ML VIAL ONE (15:07)
--- NOTE | 2018-04-23 16:05 | Invasive Diagnostic Lab Proc ---
Name: Maya Gardner Date of Study: 04/23/2018 Date: 1975 Ht: 61.8in Medical Record#: [id number] Age: 42 Wt: 238.10lb Gender: Female BSA: 2.05 Order #: [id number] BMI: 43.82 Physicians Procedure Physician: Ayo Carrasco MD, [facility] Referring MD: Referring MD: Staff Name Position Time In Carol Rocha RT (R) Monitor 03:11 PM Suzie Duncan RT (R) Scrub 03:11 PM Liane Dangelo RN Trust Accounts Supervisor 03:12 PM Indications Indication Unstable Angina Procedures Performed Procedure L HRT ARTERY/VENTRICLE ANGIO Pre-Procedure Checklist Informed consent is complete signed and on chart. H&P is on chart. ID band is on and ID verified with patient. Patient NPO for procedure The procedure was described for the patient and questions were answered. Blood Pressure: 134/91 ECG is on chart. Rhythm: NSR Plan of Care Patient will tolerate the procedure without complications. Adequate level of comfort will be maintained. Hemodynamics will remain stable Patient will recover from procedure without complications. Respiratory function will be maintained. Cardiac rhythm will remain stable. Patient temperature will be maintained. Patient and/or family have verbalized understanding of the procedure. Patient Education Chief Complaint/Reason for Test: Cardiac Cath Developmental Category: Adult (18-64 years) Developmentally Appropriate for Age: Yes Learning Barriers: None Education Needs: Procedure Education Method: Verbal Information Taught: Cardiac Cath Educational Evaluation: Able to repeat information Intravenous Access Time IV Size Location DC'd Fluid/Drip Rate Units RN 20g 1 /" Patent On Arrival Rt Arm 0.9NaCl 25 ml/hr Liane Dangelo RN Allergies NSAIDS (Non-Steroidal Anti-Inflamma lisinopril Vital Signs Time BP (mmHg) HR (bpm) O2 Sat. RR (bpm) LOC 03:12 PM 160 / 95 72 95 % 16 4 = Oriented but drowsy 03:40 PM 145 / 89 70 96 % 15 4 = Oriented but drowsy 03:27 PM 153 / 99 75 97 % 16 4 = Oriented but drowsy 03:35 PM 136 / 81 77 98 % 16 5 = Fully awake and oriented or at pre-proc level 03:20 PM 131 / 91 74 96 % 14 5 = Fully awake and oriented or at pre-proc level Procedural Medications Time Medication Dose Units Method Given By 03:16 PM Versed 2 mg Intravenous Liane Dangelo RN 03:17 PM Fentanyl 50 mcg Intravenous Liane Dangelo RN 03:25 PM Lidocaine 2% 0.5 ml Subcutaneous Ayo Carrasco MD, [facility] 03:25 PM Versed 1 mg Intravenous Liane Dangelo RN 03:25 PM Fentanyl 25 mcg Intravenous Liane Dangelo RN 03:26 PM Heparin 4000 units Nitroglycerin 200 mcg Verapamil 2.5 mg Intraarterial Ayo Carrasco MD, [facility] ASA Classification: CLASS II- Mild systemic disease (i.e. well-controlled diabetes, hypertension, asthma, cigarette smoking) Maximiliano Score Preprocedure Postprocedure Activity 2- Moves 4 extremities sustained head lift Activity 2- Moves 4 extremities sustained head lift Circulation 2- SBP +/= 20 points of pre-anesthetic level Circulation 2- SBP +/= 20 points of pre-anesthetic level Consciousness 2- Awake and alert oriented x 3 Consciousness 2- Awake and alert oriented x 3 O2 Saturation 2- Able to maintain O2 satruation of 92% on room air O2 Saturation 2- Able to maintain O2 satruation of 92% on room air Respiratory 2- Able to deep breathe and cough well Respiratory 2- Able to deep breathe and cough well Total Score 10 Total Score 10 Contrast Agent: Isovue Diagnostic Contrast: 53 ml Total Contrast: 53 ml Fluoro Dose: 393 mGy Procedure Log Time Note Enter By 03:11 PM Pt arrived to label coder 1 at 15:11 [email or web address] 03:11 PM Carol Rocha RT (R) Position: Monitor Time in: 15:11 [email or web address] 03:12 PM Suzie Duncan RT (R) Position: Scrub Time in: 15:11 [email or web address] 03:12 PM Liane Dangelo RN Position: Trust Accounts Supervisor Time in: 15:12 [email or web address] 03:12 PM Patient charges- Angio tray pack, Navilyst 3mm J, Pulse Oximetry and ACIST tubing and transducer [email or web address] 03:12 PM Case Delayed No [email or web address] 03:12 PM Hair removed from procedure site in holding area using clippers. Right wrist prepped with Chloraprep by Carol Rocha RT (R), then patient was draped. Skin intact. [email or web address] 03:12 PM Hair removed from procedure site in holding area using clippers. Right groin prepped with Chloraprep by Carol Rocha (R), then patient was draped. Skin intact. [email or web address] 03:12 PM Physician arrived 15:12 [email or web address] 03:12 PM ASA Class CLASS II- Mild systemic disease (i.e. well-controlled diabetes, hypertension, asthma, cigarette smoking) [email or web address] 03:12 PM Meet and ann completed [email or web address] 03:12 PM Sign in performed according to hospital policy. [email or web address] 03:12 PM Procedure start 15:12 [email or web address] 03:12 PM Time: 15:12 Patient comfortable and pain free: Yes [email or web address] 03:12 PM Time: 15:12LOC: 4 = Oriented but drowsy [email or web address] 03:17 PM Time: 15:16 Versed 2 mg Intravenous Given by Liane Dangelo RN [email or web address] 03:17 PM Time: 15:17 Fentanyl 50 mcg Intravenous Given by Liane Dangelo RN [email or web address] 03:25 PM Time out performed according to hospital policy [email or web address] 03:25 PM Time: 15:25 0.5 ml Lidocaine 2% to right radial Subcutaneous Given by Ayo Carrasco MD, [facility] [email or web address] 03:25 PM Time: 15:25 Versed 1 mg Intravenous Given by Liane Dangelo RN [email or web address] 03:25 PM Time: 15:25 Fentanyl 25 mcg Intravenous Given by Liane Dangelo RN [email or web address] 03:26 PM Access obtained by percutaneous puncture. 6Fr 10cm Terumo Glidesheath sheath placed in right Radial artery. [id number] [email or web address] 03:26 PM Time: 15:26 Patient given 4,000 units Heparin, 200 mcg Nitroglycerin, and 2.5 mg Verapamil Intraarterial by Ayo Carrasco MD, [facility]. This is given to reduce risk of vessel spasm and thrombosis. [email or web address] 03:27 PM 0.035 260cm Navilyst 3mmJ wire [id number] [email or web address] 03:27 PM 5Fr TIG catheter inserted over the wire [facility] [email or web address] 03:27 PM Time: 15:12 Patient comfortable and pain free: Yes [email or web address] 03:27 PM Time: 15:12LOC: 4 = Oriented but drowsy [email or web address] 03:28 PM Wire removed [email or web address] 03:29 PM 0.035 180cm VSI Jeff-Torque wire [id number] [email or web address] 03:31 PM Wire removed [email or web address] 03:31 PM Catheter removed [email or web address] 03:31 PM 5Fr FL 3.5 catheter inserted over the wire [id number] [email or web address] 03:33 PM Catheter removed [email or web address] 03:35 PM Catheter selectively placed in left ventricle [email or web address] 03:35 PM Bolus angiogram of left Ventricle complete: 10 ml/sec for a total of 20 mls [email or web address] 03:36 PM Catheter removed [email or web address] 03:36 PM 5Fr RBL 3.5 catheter inserted over the wire [id number] [email or web address] 03:37 PM LCA angiography performed in multiple views. [email or web address] 03:40 PM Catheter removed [email or web address] 03:42 PM 5Fr 3DRC catheter inserted over the wire [id number] [email or web address] 03:42 PM RCA angiography performed in multiple views. [email or web address] 03:42 PM Time: 15:27LOC: 4 = Oriented but drowsy [email or web address] 03:42 PM Time: 15:27 Patient comfortable and pain free: Yes [email or web address] 03:43 PM Coronary Dominance: right [email or web address] 03:43 PM Catheter removed [email or web address] 03:44 PM Procedure completed at 15:44 [email or web address] 03:44 PM Did you address ALEXANDER flow and Dominance? Yes [email or web address] 03:44 PM Sign out completed: Radiation Dose 392.72 mGy Fluoro Time: 6.0 Isovue 370 - 200ml contrast 52 ml given by Ayo Carrasco MD, [facility]. Complications: NoneCardiac Rehab Consult needed: NoConfirmed administered medications: Yes [email or web address] 03:44 PM Isovue 370 - 200ml,1 Bottle(s) used. [email or web address] 03:44 PM Arterial sheath pulled, Vasc Band closure device used and was Successful S/N. [email or web address] 03:44 PM 13 ml air in Vasc Band. [email or web address] 03:44 PM Estimated Blood Loss: minimal [email or web address] 03:44 PM Post ECG NSR [email or web address] 03:44 PM Post Blood Pressure 145/89 [email or web address] 03:45 PM 15:44 Post Pulses Rt Radial 2+ [email or web address] 03:45 PM Information taught Cardiac Cath and Vasc Band [email or web address] 03:45 PM Education needs Procedure, Plan of Care, and Disease Process [email or web address] 03:48 PM Site status No bleeding/hematoma - Rt Wrist as reported by Suzie Duncan RT (R) at 15:48 [email or web address] 03:48 PM Delay to floor No [email or web address] 03:48 PM Family placed in consult room. [email or web address] 03:48 PM Complications: None [email or web address] 03:48 PM Fluoro Time: 6 [email or web address] 03:48 PM Isovue 370 - 200ml contrast [address] Carrasco. [email or web address] 03:48 PM Radiation Dose 392.72 mGy [email or web address] 03:56 PM Report given to Christal HERNANDEZ Pt taken to 3B Room #54. 15:56 [email or web address] 03:56 PM Patient out of room: 15:56 [email or web address] Complications Complication None None Hemodynamics Pressures Site Systolic/A Wave Diastolic/V Wave Mean AO 138 109 124 AO 124 92 107 AO 130 107 119 LV 132 9 16 Hemodynamics Pressures Site Systolic/A Wave Diastolic/V Wave Mean LV 132 7 15 Post Procedure Information Blood Pressure: 145/89 mmHg Rhythm: NSR Post procedural instructions were given Closure Device Time Device Success/Fail 04/23/2018 3:47:00 PM Manual Compression yes Site Checks Time Location Status Staff Sheath In? Note 03:48 PM Rt Wrist No bleeding/hematoma Suzie Duncan RT (R) Pulses Time Site Pre-Procedure Post-Procedure Note 04/23/2018 3:16:00 PM Bilateral DP & PT 2+ 3:44:00 PM Rt Radial 2+ Updated by Carol oRcha, RT(R) on 04/23/2018 3:56:51 PM electronically signed on 04/23/2018 3:57:15 PM with status of Final
--- NOTE | 2018-04-23 16:12 | Discharge Summary ---
- NOTES TO OUTPATIENT PROVIDER Notes to Outpatient Provider: Recommend follow-up within one week for BP recheck. Orders not resulted at time of discharge: Pending orders 04/19/18 16:04 NM pippa perf SPECT multi [NM] Routine 04/22/18 13:08 CL Cardiac Catheterization [CL] Routine Date of Encounter: 04/23/18 Time of Encounter: 16:12 - Discharge Diagnosis (1) Chest pain Priority: Primary Status: Acute Assessment and Plan: reported chest pain on 04/18 exam that radiated to her throat/neck. Different from presenting symptoms. No known CAD. EKG without acute ST changes. Serial troponins negative. 04/09/18 [facility] TTE with EF 65%, no significant valvular disease. Reports persistent chest tightness on 04/19 exam. Cardiac risk factors include hypertension and family history. Nuclear stress test was small size, mild intensity perfusion defect suspicious for artifact however ischemia could not be excluded. 04/23/18 [facility] with on obstructive CAD; no intervention required. Chest pain possibly secondary to uncontrolled BP at times. No further workup indicated at this time. Cardiology followed Qualifiers: Chest pain type: unspecified Qualified Code(s): R07.9 - Chest pain, unspecified (2) Angioedema Priority: Primary Status: Acute Assessment and Plan: secondary to BRIANNE. Took first dose of lisinopril day prior to admission with subsequent upper and lower lip and airway edema. Symptoms resolved with stopping BRIANNE and steroids. No signs or symptoms airway compromise. Adequately oxygenating on room air. Resolved Qualifiers: Encounter type: initial encounter Qualified Code(s): T78.3XXA - Angioneurotic edema, initial encounter (3) HTN (hypertension) Priority: Primary Status: Acute Assessment and Plan: per hx. BP uncontrolled. Home BRIANNE stopped with angioedema. BP controlled with resuming home BB and adding amlodipine and hydralazine. Dietary and lifestyle modifications recommended. Recommend follow-up with PCP within one week for BP recheck Qualifiers: Hypertension type: essential hypertension Qualified Code(s): I10 - Essential (primary) hypertension (4) Migraine Priority: Primary Status: Chronic Assessment and Plan: Resumed home medication Qualifiers: Migraine type: without aura Intractability: not intractable Qualified Code(s): G43.001 - Migraine without aura, not intractable, with status migrainosus (5) Fibromyalgia Priority: Primary Status: Acute Assessment and Plan: Resumed home medication Hospital course: Please see assessment and plan for Hospital course Discharge discussed with: patient (Seen and examined at bedside. Patient says she had uneventful night. She is waiting for left heart catheterization. No chest pain or SOB on my exam.) - Time Spent with Patient Total time spent providing and/or coordinating discharge services: - Discharge Medications Prescriptions: amLODIPine [Norvasc] 10 mg PO DAILY #60 tablet hydrALAZINE [HydrALAZINE] 10 mg PO TID #90 tablet Home Medications: Pregabalin [Lyrica] 150 mg PO BID 07/02/17 [History] Propranolol HCl 40 mg PO BID 07/02/17 [History] Fexofenadine HCl [Allergy Relief] 180 mg PO DAILY 09/04/17 [History] Aspirin [Adult Aspirin] 81 mg PO DAILY 04/17/18 [History] Calcium Carbonate [Calcium] 500 mg PO DAILY 04/17/18 [History] Cyclobenzaprine [Flexeril] 10 mg PO BID 04/17/18 [History] DULoxetine [Cymbalta] 20 mg PO BID 04/17/18 [History] Ferrous Sulfate [Iron] 325 mg PO DAILY 04/17/18 [History] Hydrocodone/Acetaminophen [Hydrocodone-Acetamin 5-300 mg] 0.5 - 1 tab PO DAILY PRN 04/17/18 [History] Melatonin 5 mg PO DAILY 04/17/18 [History] Montelukast [Singulair] 10 mg PO DAILY 04/17/18 [History] Multivitamin [One Daily Essential] 1 tab PO DAILY 04/17/18 [History] Nasocobal 04/17/18 [History] amLODIPine [Norvasc] 10 mg PO DAILY #60 tablet 04/18/18 [Rx] hydrALAZINE [HydrALAZINE] 10 mg PO TID #90 tablet 04/23/18 [Rx] Allergies/Adverse Reactions: 3 Allergy/AdvReac Type Severity Reaction Status Date / Time lisinopril Allergy See Verified 04/17/18 06:39 Comments NSAIDS (Non-Steroidal Allergy See Verified 04/17/18 06:39 Anti-Inflamma Comments oral steriods Allergy See Uncoded 04/17/18 06:39 Comments Date of admission: 04/17/18 08:15 Primary care physician: Erin Marie CNP Consults: 04/22/18 11:31 Consult to Cardiology [CONS] Routine Comment: Consulting Provider: Cardiology Isabell Reason for Consult: abnormal stress Call Completed: Yes Discharging clinician: Shell Hansen Anticipated date of discharge: 04/23/18 - Constitutional Vitals: Temp Pulse Resp BP Pulse Ox 98.9 F 70 14 134/97 98 04/23/18 12:19 04/23/18 12:19 04/23/18 12:19 04/23/18 12:19 04/23/18 12:19 General appearance: Present: cooperative, A&O X 3, morbidly obese, no acute distress, answers questions appropriately - Head Head exam: Present: atraumatic, normocephalic - Eye Eye exam: Present: PERRL, conjuntiva pink, sclera anicteric Pupils: Present: PERRL - Neck Neck exam general surgery: Present: supple, trachea midline. Absent: lymphadenopathy - Respiratory Respiratory exam: Present: CTAB. Absent: accessory muscle use, rales, rhonchi, wheezes - Cardiovascular Cardiovascular exam: Present: RRR, +S1, +S2. Absent: diastolic murmur, gallop, rubs, systolic murmur - GI/Abdominal GI/Abdominal exam: Present: normal bowel sounds, soft, no peritoneal signs. Absent: distended, tenderness - Extremities Exam Extremities exam: Present: warm, radial pulses palpable and symmetrical. Absent : calf tenderness, cyanotic, pedal edema - Neurological Exam Neurological exam: Present: CN II-XII intact, oriented X3, no focal deficits. Absent: pronater drift, facial droop, speech deficit - Skin Skin exam: Present: dry, intact - Patient Status Disposition: Home, Self-Care Condition: Good Functional capacity at discharge: independent ambulation Overall status at discharge: patient is back to baseline - Discharge Instructions Instructions: Amlodipine (By mouth), Chronic Hypertension (DC), Hydralazine ( By mouth), Propranolol (By mouth) Follow Up With: Erin Marie CNP [Primary Care Provider] - (Please call your primary care provider and schedule an appointment within 5-7 days. Thank You. ) - Diet and Activity Activity: increase activity as tolerated Diet: low fat, low cholesterol, low salt diet
--- NOTE | 2018-04-23 18:09 | Electrocardiograph Report ---
[address] [place] [id number] Test Date: 2018-04-22 Pat Name: Maya Gardner Department: 113 Room: 3B54 Gender: F Health Coach: JOSELYN : 1975 Requested By: [id number] Order Number: [id number] Reading MD: Ayo Carrasco Measurements Intervals [place] Rate: 105 P: 32 TX: 170 QRS: 38 QRSD: 102 T: 3 QT: 319 QTc: 380 Interpretive Statements SINUS TACHYCARDIA POSSIBLE INFERIOR MYOCARDIAL INFARCTION, PROBABLY OLD Electronically Signed On 04-23-2018 18:07:40 EDT by Ayo Carrasco
[2018-04-23 19:48] VITALS: BP 128/85
== END 2018-04-23 19:40 | disposition home or self-care (01) ==
LOC: 3BNU 05:27 → EMEROO 05:27 → 3BNU 08:43
PROVIDERS: ADMIT Family Medicine; ATTEND Family Medicine

== ENCOUNTER 2018-11-28 08:25 | Observation (INO) ==
[2018-11-28] MEDS ORDERED: Prochlorperazine 10 MG/2 ML VIAL IVP ONE (08:36)
[2018-11-28] MEDS ORDERED: 0.9 % Sodium Chloride 1,000 ML IVC ONE (08:37)
[2018-11-28 08:47] LABS: Hematocrit 43.1 % (35.3-44.9); Hemoglobin 13.7 g/dL (11.5-15.4); Mean Corpuscular HGB Conc 31.8 g/dL (31.6-35.5); Mean Corpuscular Hemoglobin 29.3 pg (28.0-33.3); Mean Corpuscular Volume 92.3 fL (83.0-100.0); Platelet Count 356 K/mcL (140-400); Red Blood Count 4.67 M/mcL (3.82-4.97); Red Cell Distribution Width 13.7 % (11.5-14.5)
[2018-11-28 08:56] LABS: INR 0.9; Prothrombin Time 10.1 Seconds (9.4-12.1)
[2018-11-28 08:58] LABS: Activated Partial Thrombo Time 29.4 Seconds (26.0-36.0)
[2018-11-28 09:08] LABS: BUN/Creatinine Ratio 14 (6-26); Blood Urea Nitrogen 11 mg/dL (6-20); Calcium 8.9 mg/dL (8.6-10.3); Carbon Dioxide 24 mEq/L (23-29); Chloride 106 mEq/L (98-107); Glucose 81 mg/dL (70-105); Osmolality,Calculated 278 (280-300); Potassium 4.2 mEq/L (3.5-5.1); Sodium 135 mEq/L (136-145); Troponin I < 0.03 ng/mL (< 0.04); eGFR For Non-African Americans > 60 (> 60)
[2018-11-28] MEDS ORDERED: Aspirin 81 MG TAB.CHEW PO ONE (10:09)
--- NOTE | 2018-11-28 10:21 | Emergency Department Note ---
Disposition Clinical Impression: Left sided numbness Disposition: Admitted As Inpatient Condition: Fair Time of Disposition: 10:29 Neuro HPI - General Chief Complaint: ED Neuro Symptoms/Deficit Stated Complaint: numbness Time Seen by Provider: 11/28/18 08:34 Source: patient, EMS Mode of arrival: EMS Limitations: no limitations Nursing Notes Reviewed: Yes Vital Signs Reviewed: Yes - History of Present Illness HPI Narrative: 43-year-old female presents to the emergency department with left-sided numbness. Patient stated that she felt diaphoretic and lightheaded at work and approximate 7:30 this morning. She then had left-sided numbness was beginning her face as well as her left arm and left leg. She said that she has had similar symptoms in the past last time was in January where she was diagnosed with TIA/complex migraines. She did go to [facility] as she came here and was recommended to be sent up there for further evaluation. Was sent home on sumatriptan and it has been taking that. Patient otherwise has no other complaints at this time. She has not noticed any focalized weakness is there is been no recent falls or trauma she is not on any blood thinners like takes baby aspirin a day. Otherwise no complete at this time. Including fevers, chills, nausea, vomiting, headache, blurry vision, neck pain, back pain, chest pain, shortness of breath, abdominal pain, changes in bowel, pain with urination, loss of bladder or bowel, pain or tingling going down the arms or legs or generalized weakness. - Related Data Home Medications: Home Medications Medication Instructions Recorded Confirmed Pregabalin [Lyrica] 150 mg PO BID 07/02/17 04/17/18 Propranolol HCl 40 mg PO BID 07/02/17 04/17/18 Fexofenadine HCl [Allergy Relief] 180 mg PO DAILY 09/04/17 04/17/18 Aspirin [Adult Aspirin] 81 mg PO DAILY 04/17/18 04/17/18 Calcium Carbonate [Calcium] 500 mg PO DAILY 04/17/18 04/17/18 Cyclobenzaprine [Flexeril] 10 mg PO BID 04/17/18 04/17/18 DULoxetine [Cymbalta] 20 mg PO BID 04/17/18 04/17/18 Ferrous Sulfate [Iron] 325 mg PO DAILY 04/17/18 04/17/18 Hydrocodone/Acetaminophen 0.5 - 1 tab PO DAILY PRN 04/17/18 04/17/18 [Hydrocodone-Acetamin 5-300 mg] Melatonin 5 mg PO DAILY 04/17/18 04/17/18 Montelukast [Singulair] 10 mg PO DAILY 04/17/18 04/17/18 Multivitamin [One Daily Essential] 1 tab PO DAILY 04/17/18 04/17/18 Nasocobal 04/17/18 Previous Rx's Medication Instructions Recorded amLODIPine [Norvasc] 10 mg PO DAILY #60 tablet 04/18/18 hydrALAZINE [HydrALAZINE] 10 mg PO TID #90 tablet 04/23/18 Allergies/Adverse Reactions: Allergies Allergy/AdvReac Type Severity Reaction Status Date / Time lisinopril Allergy See Verified 04/17/18 06:39 Comments NSAIDS (Non-Steroidal Allergy See Verified 04/17/18 06:39 Anti-Inflamma Comments oral steriods Allergy See Uncoded 04/17/18 06:39 Comments All systems ED: reviewed and negative except as stated. Review of Systems: As Per HPI Past Medical History - Past Medical History Attestation: Yes The following information was validated with the patient. 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 - Social History Smoking Status: Never smoker Smokeless Tobacco Status: No Alcohol use: Reports: rarely Drug use: Reports: none Physical Exam - General Limitations: no limitations General appearance: alert, in no apparent distress - Head Head exam: atraumatic, normocephalic, normal inspection - Eye Eye exam: Present: normal appearance, PERRL, EOMI - ENT ENT exam: normal exam, normal oropharynx, mucous membranes moist - Neck Neck exam: Present: normal inspection, full ROM, trachea midline - Chest Chest inspection: Present: normal inspection, symmetric chest wall rise - Respiratory Respiratory exam: Present: normal lung sounds bilaterally - Cardiovascular Cardiovascular exam: Present: regular rate, normal rhythm, normal heart sounds - Abdominal Exam Abdominal exam: Present: soft, Non-Tender, normal bowel sounds. Absent: tenderness, distention, guarding, rebound, rigidity - Extremities Exam Extremities exam: Present: normal inspection, full ROM. Absent: tenderness, pedal edema - Back Exam Back exam: Present: normal inspection, full ROM. Absent: tenderness, CVA tenderness (R), CVA tenderness (L) - Neurological Exam Neurological exam: Present: alert, oriented X3, CN II-XII intact, normal gait, motor sensory deficit - Expanded Neurological Exam Patient oriented to: Present: person, place, time Speech: Present: fluid speech Cranial nerves: EOM function (II, III, IV, ): Normal, facial sensation (V): Normal, facial palsy (VII): Normal, spinal accessory function (XI): Normal, tongue deviation (XII): Normal Cerebellar function: finger to nose: Normal, heel to devi: Normal Cerebellar function: normal gait Motor strength - LUE: 4/5 Motor strength - RUE: 4/5 Motor strength - LLE: 4/5 Motor strength - RLE: 4/5 Upper motor neuron exam: trevon neglect: Absent bilaterally, pronator drift: Absent bilaterally Sensory exam upper extremity: light touch: Abnormal Left, pin prick: Normal Sensory exam lower extremity: light touch: Abnormal Left, pin prick: Normal Coma Scale Eye Opening: Spontaneous Coma Scale Motor Response: Obeys Commands Coma Scale Verbal Response: Oriented Coma Scale Total: 15 - Skin Skin exam: Present: warm, dry, intact, normal color Course Vital Signs Temperature 97.8 F 11/28/18 08:29 Pulse Rate 69 11/28/18 08:29 Respiratory Rate 16 11/28/18 08:29 Blood Pressure 131/54 11/28/18 08:29 O2 Sat by Pulse Oximetry 100 11/28/18 08:29 Temperature 97.8 F 11/28/18 08:53 Pulse Rate 74 11/28/18 10:04 Respiratory Rate 15 11/28/18 10:04 Blood Pressure 141/90 11/28/18 10:04 O2 Sat by Pulse Oximetry 100 11/28/18 10:04 Oxygen Delivery Oxygen Delivery Room Air Neuro Symptoms/Deficit - MDM Narrative Medical decision making narrative: Patient presented here last known well was 7:30 this morning she did meet a stroke alert criteria but has the left-sided numbness. Stroke alert was called patient did go over for emergent head CT which showed no acute findings. [facility] neurology did come and see the patient and did a full neurological exam they do not recommend TPA at this time and believe this could be secondary to either TIA/complex migraine. They recommended stopping all sumatriptan and's that she had been taking and recommended consult seeing neurology and getting a stroke workup including MRI as well as getting follow-up with a headache specialist. Patient quincy has no point with headache specialist coming up in the next week or 2. Patient was given aspirin. I also gave patient Compazine and Benadryl for possibly migraine treatment. Patient okay with this plan. Patient did have an NIH of 0 but only had findings of numbness along the left side but there was no decreased sensation on pinprick test. Otherwise there is no focalized motor dysfunctions. No other focalized functions were found. Patient otherwise has no complaints at this time she is stable. Patient will be admitted to the hospitalist. I spoke with Dr. paez to agreed to accept the patient to their service. Patient is admitted at this time neurology consult was placed. - Medical Records Medical records reviewed: Yes I reviewed the patient's medical records. - Lab Data Lab results reviewed: Yes I reviewed the patient's lab results. Result diagrams: 11/28/18 08:34 11/28/18 08:34 Lab Results 11/28/18 11/28/18 11/28/18 Range/Units 08:34 08:34 08:34 WBC 10.0 (4.3-11.1) K/mcL RBC 4.67 (3.82-4.97) M/mcL Hgb 13.7 (11.5-15.4) g/dL Hct 43.1 (35.3-44.9) % MCV 92.3 (83.0-100.0) fL MCH 29.3 (28.0-33.3) pg MCHC 31.8 (31.6-35.5) g/dL RDW 13.7 (11.5-14.5) % Plt Count 356 (140-400) K/mcL MPV 10.0 (9.4-12.4) fL PT 10.1 (9.4-12.1) Seconds INR 0.9 APTT 29.4 (26.0-36.0) Seconds Sodium 135 L (136-145) mEq/L Potassium 4.2 (3.5-5.1) mEq/L Chloride 106 (98-107) mEq/L Carbon Dioxide 24 (23-29) mEq/L BUN 11 (6-20) mg/dL Creatinine 0.79 (0.60-1.20) mg/dL Est GFR ( Amer) > 60 (> 60) Est GFR (Non-Af Amer) > 60 (> 60) BUN/Creatinine Ratio 14 (6-26) Glucose 81 (70-105) mg/dL Calculated Osmolality 278 L (280-300) Calcium 8.9 (8.6-10.3) mg/dL Troponin I < 0.03 (< 0.04) ng/mL - Radiology Data Radiology results reviewed: Yes I reviewed the patient's radiology results. NIH Stroke Scale - Level of Consciousness LOC: Alert - LOC Questions LOC Questions: Answers both correctly - LOC Commands LOC Commands: Performs both correctly - Best Gaze Best Gaze: Normal - Visual Visual: No visual loss - Facial Palsy Facial Palsy: Normal - Motor Arms Motor Arm-Left: No drift for 10 seconds Motor Arm-Right: No drift for 10 seconds - Motor Legs Motor Leg-Left: No drift for 5 seconds Motor Leg-Right: No drift for 5 seconds - Limb Ataxia Limb Ataxia: Absent of affected limb too weak to perform exam - Sensory Sensory: Normal - Best Language Best Language: No aphasia - Dysarthria Dysarthria: Normal - Extinction and Inattention Extinction and Inattention: Normal - NIHSS Total Score NIHSS Total Score: 0 TPA Checklist - LKW: 3-4.5 hrs Add. Warnings/Precautions Patient/family understanding: The patient/family members have been counseled and understood the risk, benefit, and alternatives of treatment.
--- NOTE | 2018-11-28 10:53 | Emergency Department Note ---
Disposition Clinical Impression: Left sided numbness Disposition: Admitted As Inpatient Condition: Fair General Adult HPI - General Chief complaint: ED Neuro Symptoms/Deficit Stated complaint: numbness Time Seen by Provider: 11/28/18 08:34 Source: patient, EMS Mode of arrival: EMS Limitations: no limitations - History of Present Illness Pain Scale: 0 - Related Data Home Medications Medication Instructions Recorded Confirmed Pregabalin [Lyrica] 150 mg PO BID 07/02/17 04/17/18 Propranolol HCl 40 mg PO BID 07/02/17 04/17/18 Fexofenadine HCl [Allergy Relief] 180 mg PO DAILY 09/04/17 04/17/18 Aspirin [Adult Aspirin] 81 mg PO DAILY 04/17/18 04/17/18 Calcium Carbonate [Calcium] 500 mg PO DAILY 04/17/18 04/17/18 Cyclobenzaprine [Flexeril] 10 mg PO BID 04/17/18 04/17/18 DULoxetine [Cymbalta] 20 mg PO BID 04/17/18 04/17/18 Ferrous Sulfate [Iron] 325 mg PO DAILY 04/17/18 04/17/18 Hydrocodone/Acetaminophen 0.5 - 1 tab PO DAILY PRN 04/17/18 04/17/18 [Hydrocodone-Acetamin 5-300 mg] Melatonin 5 mg PO DAILY 04/17/18 04/17/18 Montelukast [Singulair] 10 mg PO DAILY 04/17/18 04/17/18 Multivitamin [One Daily Essential] 1 tab PO DAILY 04/17/18 04/17/18 Nasocobal 04/17/18 Previous Rx's Medication Instructions Recorded amLODIPine [Norvasc] 10 mg PO DAILY #60 tablet 04/18/18 hydrALAZINE [HydrALAZINE] 10 mg PO TID #90 tablet 04/23/18 Allergies Allergy/AdvReac Type Severity Reaction Status Date / Time lisinopril Allergy See Verified 04/17/18 06:39 Comments NSAIDS (Non-Steroidal Allergy See Verified 04/17/18 06:39 Anti-Inflamma Comments oral steriods Allergy See Uncoded 04/17/18 06:39 Comments Past Medical History - Past Medical History Medical history: Reports: arthritis, hyperlipidemia, hypertension, migraine Surgical history: Reports: cholecystectomy Psychiatric history: Reports: anxiety, depression 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 - Social History Smoking Status: Never smoker Smokeless Tobacco Status: No Alcohol use: Reports: rarely Drug use: Reports: none Physical Exam - General Limitations: no limitations General appearance: alert, in no apparent distress Course Vital Signs Temperature 97.8 F 11/28/18 08:29 Pulse Rate 69 11/28/18 08:29 Respiratory Rate 16 11/28/18 08:29 Blood Pressure 131/54 11/28/18 08:29 O2 Sat by Pulse Oximetry 100 11/28/18 08:29 Temperature 97.8 F 11/28/18 08:53 Pulse Rate 72 11/28/18 10:29 Respiratory Rate 18 11/28/18 10:29 Blood Pressure 135/92 11/28/18 10:29 O2 Sat by Pulse Oximetry 98 11/28/18 10:29 Oxygen Delivery Oxygen Delivery Room Air Medical Decision Making - Lab Data Result diagrams: 11/28/18 08:34 11/28/18 08:34 Lab Results 11/28/18 11/28/18 11/28/18 Range/Units 08:34 08:34 08:34 WBC 10.0 (4.3-11.1) K/mcL RBC 4.67 (3.82-4.97) M/mcL Hgb 13.7 (11.5-15.4) g/dL Hct 43.1 (35.3-44.9) % MCV 92.3 (83.0-100.0) fL MCH 29.3 (28.0-33.3) pg MCHC 31.8 (31.6-35.5) g/dL RDW 13.7 (11.5-14.5) % Plt Count 356 (140-400) K/mcL MPV 10.0 (9.4-12.4) fL PT 10.1 (9.4-12.1) Seconds INR 0.9 APTT 29.4 (26.0-36.0) Seconds Sodium 135 L (136-145) mEq/L Potassium 4.2 (3.5-5.1) mEq/L Chloride 106 (98-107) mEq/L Carbon Dioxide 24 (23-29) mEq/L BUN 11 (6-20) mg/dL Creatinine 0.79 (0.60-1.20) mg/dL Est GFR ( Amer) > 60 (> 60) Est GFR (Non-Af Amer) > 60 (> 60) BUN/Creatinine Ratio 14 (6-26) Glucose 81 (70-105) mg/dL Calculated Osmolality 278 L (280-300) Calcium 8.9 (8.6-10.3) mg/dL Troponin I < 0.03 (< 0.04) ng/mL Attestation Statement - Attestation Attestation: I examined this patient and my medical decision-making was reviewed with the Resident Physician. I agree with the documented findings, disposition and treatment plan as described except to the extent set forth below. Onset of neurologic symptoms this morning that was followed a short time later by a headache. Patient has history of migraines. On arrival to the ED, NIH is 0 although she does have some neurologic findings that do not register on the NIH stroke scale. Suspicion is that she likely has a complex migraine. MRI will be performed to rule out a lacunar stroke. Accepted by the hospitalist for admission and neurology evaluation.
[2018-11-28] MEDS ORDERED: *HR* Promethazine 25 MG/ML VIAL IVP PRN (12:00)
[2018-11-28] MEDS ORDERED: Ondansetron ODT 4 MG TAB.RAPDIS SL PRN (12:00)
[2018-11-28] MEDS ORDERED: Naloxone 0.4 MG/ML INJ IVP PRN (12:00)
[2018-11-28] MEDS ORDERED: traMADol 50 MG TABLET PO PRN (12:00)
[2018-11-28] MEDS ORDERED: Acetaminophen 325 MG TABLET PO PRN (12:00)
[2018-11-28] MEDS ORDERED: *HR* HYDROcodone/Acet 5/325 mg TABLET PO PRN (12:00)
--- NOTE | 2018-11-28 12:27 | Neurology Progress Note ---
Date of Encounter: 11/28/18 Time of Encounter: 12:26 Objective - Constitutional Vitals: Temp Pulse Resp BP Pulse Ox 98.4 F 79 16 133/85 97 11/28/18 12:08 11/28/18 12:08 11/28/18 12:08 11/28/18 12:08 11/28/18 12:08 Results - Laboratory Findings CBC and BMP: 11/28/18 08:34 11/28/18 08:34 Abnormal lab findings: Abnormal lab results Sodium 135 mEq/L (136-145) L 11/28/18 08:34 Calculated Osmolality 278 (280-300) L 11/28/18 08:34 Consult Discharge Plan - Plan Referrals: Erin Marie, [employer]PER[employer] [Primary Care Provider] - (The office has requested the patient contact them directly after discharge to schedule an appointment. )
--- NOTE | 2018-11-28 12:29 | Neurology - Consult Note ---
Date of Encounter: 11/28/18 Time of Encounter: 12:27 Assessment and Plan (1) Headache, chronic migraine without aura, intractable, with status Current Visit: Yes Status: Acute Patient was an history of chronic migraine headaches for the past several years Seems to be getting more complicated her symptoms are likely related to the migrainous phenomenon given numbness and paresthesias without any focal findings on neurological examination. CT scan of the head is been negative. She has already received IV medication that has broken her migraine cycle most recently she had a headache that lasted for 15 days She had been tried on almost every possible medication for migraine prevention including Botox injections and recently she is been getting refractory headaches and it is not helping At this time I would suggest that she should continue on Imitrex on as needed basis only along with some NSAID Use Medrol Dosepak as an outpatient for this week She is on metoprolol for migraine prevention suggest to continue for now She is a scheduled to see a headache especially since the brain suggested she keep up that appointment If MRI is brain is negative she should be able to discharge to home with follow- up with neurology in [place] as a scheduled Discussed with the patient in detail she agrees with the plan (2) Left sided numbness Current Visit: Yes Status: Acute History of Present Illness HPI: Ms. Gardner is a 43 year old female known to me from previous office visits with a history of chronic migraine headaches had been on multiple medications admitted with left-sided numbness. Predominantly in her face as well as her left arm Patient stated that she felt diaphoretic and lightheaded at work and approximate 7:30 this morning. She then had left-sided numbness was beginning her face as well as her left arm and left leg. She said that she has had similar symptoms in the past last time was in January where she was diagnosed with TIA/complex migraines. Patient otherwise has no other complaints at this time. She has not noticed any focalized weakness is there is been no recent falls or trauma she is not on any blood thinners like takes baby aspirin a day. Otherwise no complete at this time. Including fevers, chills, nausea, vomiting, headache, blurry vision, neck pain, back pain, chest pain, shortness of breath, abdominal pain, changes in bowel, pain with urination, loss of bladder or bowel, pain or tingling going down the arms or legs or generalized weakness. CT scan of the head is negative She had been on multiple medications for chronic migraine including Botox injection but did stop working few months ago and she is scheduled to see a headache specialist up in [place]. She had been on multiple medication for these chronic the refractory migraine headaches most recently been on Botox Past Med Surg Social Fam HX - Past Medical History Medical history: arthritis, hyperlipidemia, hypertension, migraine Additional medical history: IBS. history of HTN, Hyperlipidemia, DM, GERD- patient states all resolved after gastric bypass Psychiatric history: anxiety, depression - Past Surgical History Surgical History: cholecystectomy Additional surgical history: GASTRIC BYPASS. BOWEL RESECTION. Left shoulder. Left ankle. Left breast bx. Left knee knee. sinus x2 - Social History Smoking Status: Never smoker Smokeless Tobacco Status: No Alcohol use: rarely Drug use: none - Family History Sister Family Member Ethnicity: Unknown Living Status: Still Living Hx Family Cancer: Yes Hx Family Endocrine Disorder: Yes Mother Living Status: Still Living Hx Family Cardiac Disorders: Yes Father Adopted: No Living Status: Still Living Hx Family Endocrine Disorder: Yes Medications and Allergies Pregabalin [Lyrica] 150 mg PO BID 07/02/17 [History] Propranolol HCl 40 mg PO BID 07/02/17 [History] Fexofenadine HCl [Allergy Relief] 180 mg PO DAILY 09/04/17 [History] Aspirin [Adult Aspirin] 81 mg PO DAILY 04/17/18 [History] Calcium Carbonate [Calcium] 500 mg PO DAILY 04/17/18 [History] Cyclobenzaprine [Flexeril] 10 mg PO BID 04/17/18 [History] DULoxetine [Cymbalta] 20 mg PO BID 04/17/18 [History] Ferrous Sulfate [Iron] 325 mg PO DAILY 04/17/18 [History] Hydrocodone/Acetaminophen [Hydrocodone-Acetamin 5-300 mg] 0.5 - 1 tab PO DAILY PRN 04/17/18 [History] Melatonin 5 mg PO DAILY 04/17/18 [History] Montelukast [Singulair] 10 mg PO DAILY 04/17/18 [History] Multivitamin [One Daily Essential] 1 tab PO DAILY 04/17/18 [History] Nasocobal 04/17/18 [History] amLODIPine [Norvasc] 10 mg PO DAILY #60 tablet 04/18/18 [Rx] hydrALAZINE [HydrALAZINE] 10 mg PO TID #90 tablet 04/23/18 [Rx] Allergy/AdvReac Type Severity Reaction Status Date / Time lisinopril Allergy See Verified 04/17/18 06:39 Comments NSAIDS (Non-Steroidal Allergy See Verified 04/17/18 06:39 Anti-Inflamma Comments oral steriods Allergy See Uncoded 04/17/18 06:39 Comments All Systems: The remainder of the systems were reviewed and are negative Physical Examination - Vital Signs Vital Signs: Initial Vital Signs Temp Pulse Resp BP Pulse Ox 97.8 F 69 16 131/54 100 11/28/18 08:29 11/28/18 08:29 11/28/18 08:29 11/28/18 08:29 11/28/18 08:29 - Exam Exam: GENERAL: Comfortable in no acute distress HEENT: Normal LUNGS: CTA HEART: RRR, S1 S2 Audible, no murmur EXTREMITIES: No Pedal edema. DETAILED NEUROLOGICAL EXAMINATION: MENTAL STATUS: Oriented to person, place, date and situation. Memory: knows the President, Aware of recent events Recent Memory Intact, Attention span is normal Cranial Nerve Examination: CN - II: Visual Acuity, Field of Vision Normal, Fundus examination: No disk edema, Pupils- size shape reaction to light and accommodation: All normal. CN III, IV, : External ocular movements were intact, Pupils were reactive, Nodrooping of the eyelids CN V: Sensation over the face to light touch and pinprick all normal. Corneal reflexes not tested, jaw jerk normal. CN VII: No facial asymmetry, no flattening of nasolabial folds, no difficulty in closing the eyes, no loss of forehead wrinkles, no difficulty in eye-closure, frowning raising eyebrows. CNVIII: No significant hearing loss CN IX, X: Uvula centralized not deviated, Gag reflex: Not tested CN X1: Sternocleidomastoid, trapezius, normal or evidence of any weakness. CN X11: No Dysarthria, no wasting or fibrilation f tongue muscles, no deviation, tongue muscle strength normal. Motor examination: No hypertrophy, tone was normal, power grade 0-5 Upper limbs Proximal- No difficulty in lifting the arms above the head. Distal- No weakness in distal muscles On formal testing 5/5 all over Lower limbs On formal testing 5/5 all over Coordination: [id number] normal. Target pursuit normal finger tapping normal, Rapid alternating moment of wrist normal Sensory system: Superficial sensations- Touch normal. Pain- Pinprick, Temperature all normal, Deep sensation normal, Joint position sense normal. Cortical sensation, Tactile discrimination, localization and extinction all normal. Deep tendon reflexes. Symmetrical bilateral, No evidence of Babinski. No sign of meningeal irritation Gait Examination: Deferred - Constitutional General appearance: comfortable Results - Laboratory Findings CBC and BMP: 11/28/18 08:34 11/28/18 08:34 Abnormal lab findings: Abnormal lab results Sodium 135 mEq/L (136-145) L 11/28/18 08:34 Calculated Osmolality 278 (280-300) L 11/28/18 08:34 Consult Discharge Plan - Plan Referrals: Erin Marie, LOADER OPERATOR [Primary Care Provider] - (The office has requested the patient contact them directly after discharge to schedule an appointment. )
[2018-11-28] MEDS ORDERED: *HR* LORazepam 2 MG/ML VIAL IVP ONE (13:52)
[2018-11-28 14:53] VITALS: BP 141/88
--- NOTE | 2018-11-28 16:00 | Internal Med History&Physical ---
Date of Encounter: 11/28/18 Time of Encounter: 15:00 Internal Medicine - H&P: HPI Chief complaint: Left-sided numbness Admitted From: Emergency Dept Plans for Post Hospital Care: Home History of present illness: Ms. Gardner is a 43 year old female with known past medical history of hypertension, hyperlipidemia, chronic migraine headaches, neuropathy, fibromyalgia, seasonal allergies patient presented to ER complaining about this morning at 7:30 while she is at work she noticed left-sided numbness beginning over her face which slowly progressed into her left arm associated with the diaphoresis and lightheadedness. Patient stated her symptoms resolved within few minutes. Patient was evaluated by [facility] tele neurologist here in our emergency room as per stroke protocol. Patient was not a candidate for TPA since his symptoms resolved also it was concerning for complex migraine headache. Patient was admitted in the hospital for further evaluation. When I examined her in the afternoon patient denied anymore weakness/numbness in her left side of the body. She denied any headaches. She denied any chest pain, shortness of breath Past Med Surg Social Fam HX - Past Medical History Medical history: arthritis, hyperlipidemia, hypertension, migraine Additional medical history: IBS. history of HTN, Hyperlipidemia, DM, GERD- patient states all resolved after gastric bypass Psychiatric history: anxiety, depression - Past Surgical History Surgical History: cholecystectomy Additional surgical history: GASTRIC BYPASS. BOWEL RESECTION. Left shoulder. Left ankle. Left breast bx. Left knee. sinus x2 - Social History Smoking Status: Never smoker Smokeless Tobacco Status: No Alcohol use: rarely Drug use: none - Family History Sister Family Member Ethnicity: Unknown Living Status: Still Living Hx Family Cancer: Yes Hx Family Endocrine Disorder: Yes Mother Living Status: Still Living Hx Family Cardiac Disorders: Yes (HTN) Father Adopted: No Living Status: Still Living Hx Family Endocrine Disorder: Yes (DM) Internal Medicine - H&P: Meds Pregabalin [Lyrica] 150 mg PO BID 07/02/17 [History] Propranolol HCl 40 mg PO BID 07/02/17 [History] Fexofenadine HCl [Allergy Relief] 180 mg PO DAILY 09/04/17 [History] Aspirin [Adult Aspirin] 81 mg PO DAILY 04/17/18 [History] Calcium Carbonate [Calcium] 500 mg PO DAILY 04/17/18 [History] Cyclobenzaprine [Flexeril] 10 mg PO BID 04/17/18 [History] DULoxetine [Cymbalta] 20 mg PO BID 04/17/18 [History] Ferrous Sulfate [Iron] 325 mg PO DAILY 04/17/18 [History] Montelukast [Singulair] 10 mg PO DAILY 04/17/18 [History] Multivitamin [One Daily Essential] 1 tab PO DAILY 04/17/18 [History] Nasocobal 1 spr NS MO 04/17/18 [History] amLODIPine [Norvasc] 10 mg PO DAILY #60 tablet 04/18/18 [Rx] Acetaminophen [Tylenol Arthritis] 1,300 mg PO BID 11/28/18 [History] Melatonin 6 mg PO HS 11/28/18 [History] Omeprazole [PriLOSEC] 20 mg PO BID 11/28/18 [History] Rosuvastatin Calcium [Crestor] 40 mg PO DAILY 11/28/18 [History] hydrALAZINE [HydrALAZINE] 10 mg PO BID 11/28/18 [History] Allergy/AdvReac Type Severity Reaction Status Date / Time lisinopril Allergy "FACE Verified 11/28/18 15:35 SWELLS" NSAIDS (Non-Steroidal Allergy See Verified 11/28/18 15:35 Anti-Inflamma Comments oral steriods Allergy See Uncoded 11/28/18 15:35 Comments All Systems PM: A 10-system review of systems was performed and is negative for pertinent findings except as documented above in the HPI. Review of systems: All the systems are reviewed everything is benign except the systems and symptoms I mentioned in the history of present illness - Constitutional Vitals: Temp Pulse Resp BP Pulse Ox 98.5 F 82 16 141/88 98 11/28/18 14:49 11/28/18 14:49 11/28/18 14:49 11/28/18 14:49 11/28/18 14:49 General appearance: Present: A&O X 3, no acute distress, answers questions appropriately Exam: See below - Head Head exam: Present: atraumatic, normal inspection - Neck Neck exam general surgery: Present: supple - Respiratory Respiratory exam: Present: decreased breath sounds. Absent: rales, respiratory distress, rhonchi, wheezes - Cardiovascular Cardiovascular exam: Present: RRR, +S1, +S2. Absent: tachycardia - GI/Abdominal GI/Abdominal exam: Present: normal bowel sounds, soft. Absent: rebound, rigid, tenderness - Extremities Exam Extremities exam: Absent: calf tenderness, pedal edema, tenderness - Back Exam Back exam: Absent: CVA tenderness (L), CVA tenderness (R) - Neurological Exam Neurological exam: Present: alert, CN II-XII intact, normal gait, oriented X3, reflexes normal, no focal deficits, strengths equal and symetr throughout. Absent: motor sensory deficit, pronater drift, facial droop, speech deficit - Psychiatric Psychiatric exam: Present: normal affect, normal mood Internal Med - H&P Results - Labs CBC & Chem 7: 11/28/18 08:34 11/28/18 08:34 Labs: Short CBC 11/28/18 Range/Units 08:34 WBC 10.0 (4.3-11.1) K/mcL Hgb 13.7 (11.5-15.4) g/dL Hct 43.1 (35.3-44.9) % Plt Count 356 (140-400) K/mcL BMP 11/28/18 08:34 Sodium 135 L Potassium 4.2 Chloride 106 Carbon Dioxide 24 BUN 11 Creatinine 0.79 Glucose 81 Calcium 8.9 Cardiac Enzymes 11/28/18 Range/Units 08:34 Troponin I < 0.03 (< 0.04) ng/mL - Impressions ITS Impressions Head CT 11/28/18 08:34 IMPRESSION: No acute intracranial abnormality. Critical results were called by Dr. Hieu Valverde to Landon Mercedes on 11/28/2018 at 08:52. D/ / Hieu Valverde / Hieu Valverde Interpreting Provider: Hieu Valverde Brain MRI 11/28/18 12:06 IMPRESSION: There are a few areas of high signal in the periventricular white matter that are nonspecific, and they could be incidental. Chronic small vessel ischemic change can cause this finding. Demyelination cannot be excluded in the appropriate clinical setting. Small cystic lesion in the right temporal lobe that is stable back to 2013 and may represent a previous area of injury or infarct. There is no associated edema or gliosis on the current exam. A low grade neoplasm is felt to be less likely given the stability. D/ / 11/28/2018 15:28:58 Sophia Haskins MD / earnold Interpreting Provider: Sophia Haskins MD - Assessment and plan (1) TIA (transient ischemic attack) Current Visit: Yes Status: Acute Assessment and plan: Place the pt into Tele for observation Will do neuro checks Q [address] of the head no acute intracranial abnormality noticed continue aspirin cont Crestor will get MRI of the Head in AM symptoms are consistent with the complex migraine headaches related neurology consulted for further evaluation (2) Left sided numbness Current Visit: Yes Status: Acute Assessment and plan: Improved (3) Migraine Current Visit: Yes Status: Chronic Assessment and plan: Recommend to follow up with neurologist as outpatient Qualifiers: Migraine type: without aura Intractability: not intractable Qualified Code(s): G43.001 - Migraine without aura, not intractable, with status migrainosus (4) Fibromyalgia Current Visit: No Status: Acute Assessment and plan: Resumed home medications (5) HTN (hypertension) Current Visit: No Status: Acute Assessment and plan: Stable with current home medications Qualifiers: Hypertension type: essential hypertension Qualified Code(s): I10 - Essential (primary) hypertension - Time Spent With Patient Total time spent is greater than 50% in coordination of care (as documented) at patient's floor/unit and/or counseling patient:
--- NOTE | 2018-11-28 16:12 | Discharge Summary ---
- NOTES TO OUTPATIENT PROVIDER Notes to Outpatient Provider: Follow up with PCP in one week. Follow-up with the neurology Dr. Hercules in one week. Please follow up with your headache specialist from [place] as scheduled. Orders not resulted at time of discharge: Pending orders 11/29/18 04:00 Lipid Panel AM 0400 Date of Encounter: 11/28/18 Time of Encounter: 16:08 - Discharge Diagnosis (1) TIA (transient ischemic attack) Priority: Primary Status: Acute (2) Left sided numbness Priority: Primary Status: Acute (3) Fibromyalgia Priority: Secondary Status: Acute (4) HTN (hypertension) Priority: Secondary Status: Acute Qualifiers: Hypertension type: essential hypertension Qualified Code(s): I10 - Esse ntial (primary) hypertension Hospital course: Ms. Gardner is a 43 year old female with known past medical history of hypertension, hyperlipidemia, chronic migraine headaches, neuropathy, fibromyalgia, seasonal allergies patient presented to ER complaining about this morning at 7:30 while she is at work she noticed left-sided numbness beginning over her face which slowly progressed into her left arm associated with the diaphoresis and lightheadedness. Patient stated her symptoms resolved within few minutes. Patient was evaluated by [facility] tele neurologist here in our emergency room as per stroke protocol. Patient was not a candidate for TPA since her symptoms resolved also it was concerning for complex migraine headache. Reviewed her EKG which showed normal sinus rhythm no acute ischemic changes, no arrhythmias noticed. Patient was admitted in the hospital for further evaluation. She was placed on awake overnight monitor. She was evaluated by neurologist, who recommended brain MRI. Her MRI of Brain did not show acute ischemic / infarction. She does have some chronic small vessel ischemic changes. She also had a small cystic lesion in the right temporal lobe which seems to be stable from 2014. I did discuss with neurologist about this MRI findings. Neurologist did not recommend for any further workup/interventions now. He recommend discharge her home today and f/u with them as an out pt - Time Spent with Patient Total time spent providing and/or coordinating discharge services: - Discharge Medications Home Medications: Pregabalin [Lyrica] 150 mg PO BID 07/02/17 [History] Propranolol HCl 40 mg PO BID 07/02/17 [History] Fexofenadine HCl [Allergy Relief] 180 mg PO DAILY 09/04/17 [History] Aspirin [Adult Aspirin] 81 mg PO DAILY 04/17/18 [History] Calcium Carbonate [Calcium] 500 mg PO DAILY 04/17/18 [History] Cyclobenzaprine [Flexeril] 10 mg PO BID 04/17/18 [History] DULoxetine [Cymbalta] 20 mg PO BID 04/17/18 [History] Ferrous Sulfate [Iron] 325 mg PO DAILY 04/17/18 [History] Montelukast [Singulair] 10 mg PO DAILY 04/17/18 [History] Multivitamin [One Daily Essential] 1 tab PO DAILY 04/17/18 [History] Nasocobal 1 spr NS MO 04/17/18 [History] amLODIPine [Norvasc] 10 mg PO DAILY #60 tablet 04/18/18 [Rx] Acetaminophen [Tylenol Arthritis] 1,300 mg PO BID 11/28/18 [History] Albuterol Sulfate [Albuterol Inhaler] 1 puff IN Q4-6H PRN 11/28/18 [History] Desog-E.estradiol/E.estradiol [Viorele 28 Day Tablet] 1 tab PO DAILY 11/28/18 [History] Melatonin 6 mg PO HS 11/28/18 [History] Omeprazole [PriLOSEC] 20 mg PO BID 11/28/18 [History] Onabotulinumtoxina [Botox] 200 unit IM Q3M 11/28/18 [History] Pseudoephedrine [Sudafed] 30 mg PO BID PRN 11/28/18 [History] Rosuvastatin Calcium [Crestor] 40 mg PO DAILY 11/28/18 [History] SUMAtriptan Succinate [Sumavel Dosepro] 6 mg SQ ONCE PRN 11/28/18 [History] Valacyclovir HCl [Valtrex] 2,000 mg PO Q12H PRN 11/28/18 [History] hydrALAZINE [HydrALAZINE] 10 mg PO BID 11/28/18 [History] Allergies/Adverse Reactions: Allergy/AdvReac Type Severity Reaction Status Date / Time lisinopril Allergy "FACE Verified 11/28/18 15:35 SWELLS" NSAIDS (Non-Steroidal Allergy See Verified 11/28/18 15:35 Anti-Inflamma Comments oral steriods Allergy See Uncoded 11/28/18 15:35 Comments Date of admission: 11/28/18 10:22 Primary care physician: Erin Marie CNP Consults: 11/28/18 10:12 Consult to Neurology [CONS] Stat Consulting Provider: [facility]rology [facility] Reason for Consult: stroke workup Call Completed: No - Constitutional Vitals: Temp Pulse Resp BP Pulse Ox 98.5 F 82 16 141/88 98 11/28/18 14:49 11/28/18 14:49 11/28/18 14:49 11/28/18 14:49 11/28/18 14:49 General appearance: Present: A&O X 3, no acute distress, answers questions appropriately Exam: See below - Head Head exam: Present: atraumatic, normal inspection - Neck Neck exam general surgery: Present: supple - Respiratory Respiratory exam: Present: decreased breath sounds. Absent: rales, respiratory distress, rhonchi, wheezes - Cardiovascular Cardiovascular exam: Present: RRR, +S1, +S2. Absent: tachycardia - GI/Abdominal GI/Abdominal exam: Present: normal bowel sounds, soft. Absent: rebound, rigid, tenderness - Extremities Exam Extremities exam: Absent: calf tenderness, pedal edema, tenderness - Back Exam Back exam: Absent: CVA tenderness (L), CVA tenderness (R) - Neurological Exam Neurological exam: Present: alert, oriented X3 - Psychiatric Psychiatric exam: Present: normal affect, normal mood - Patient Status Disposition: Home, Self-Care Condition: Good Overall status at discharge: patient is back to baseline - Discharge Instructions Follow Up With: Erin Marie CNP [Primary Care Provider] - (The office has requested the patient contact them directly after discharge to schedule an appointment. ) - Diet and Activity Activity: increase activity as tolerated Diet: low salt diet Addendum entered and electronically signed by Ruben Daniels 11/30/18 16:24: Addendum entered and electronically signed by Marcelina Ch MD 12/01/18 10:27:
--- NOTE | 2018-12-01 12:44 | Electrocardiograph Report ---
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
--- NOTE | 2018-12-01 12:47 | Electrocardiograph Report ---
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
--- NOTE | 2018-12-01 13:05 | Electrocardiograph Report ---
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
== END 2018-11-28 17:14 | disposition home or self-care (01) ==
LOC: EMEROOARM 08:25 → 3BNU 08:25
PROVIDERS: ADMIT Internal Medicine; ATTEND Internal Medicine